=== PATIENT | male | born 1970 | race Caucasian/White ===

== ENCOUNTER 2020-01-14 06:03 | Emergency (ER) | payer OTHER, SELFPAY ==
[2020-01-14 06:04] VITALS: BP 157/100; PULSE 72; RESP 18; TEMP 36.7; O2SAT 98; BMI 31.6
--- NOTE | 2020-01-14 06:12 | CT_ITS ---
STUDY: CT ABDOMEN AND PELVIS WITHOUT CONTRAST REASON FOR EXAM: Male, 49 years old. Right flank pain. TECHNIQUE: Transaxial images were obtained from the dome of the diaphragm to the symphysis pubis without oral contrast, and without intravenous contrast. Sagittal and coronal images were reconstructed. Individualized dose optimization techniques were used for this CT. COMPARISON: 08/14/2012 CT abdomen and pelvis. FINDINGS: Partially visualized lower chest: Lung bases unremarkable. Liver: No concerning lesions. Gallbladder and biliary tree: No visible gallstones. No pericholecystic inflammation. No biliary ductal dilation. Pancreas: No pancreatic lesions or inflammation. Spleen: Normal size, no splenic lesions. Adrenal glands: No concerning masses. Kidneys and ureters: 5 mm distal right ureteral stone, a couple of millimeters proximal from the urinary bladder, with mild more proximal hydronephrosis and hydroureter and adjacent stranding. No residual right-sided stones. Several nonobstructing left renal stones, largest 15 mm in the renal pelvis. Scarring midpole right kidney. Left ureter unremarkable. Bowel: Normal appendix. No obstruction or inflammation of the bowel. Scattered sigmoid colon diverticula, no diverticulitis. Urinary bladder: No stones or wall thickening. Reproductive:Normal size prostate. Vascular: No abdominal aortic aneurysm. Retroperitoneal and peritoneal spaces: No ascites or free air. No retroperitoneal lesions. Osseous: No acute osseous abnormality. Abdominal and pelvic wall: No concerning findings. CT/Abdomen/Pelvis without Cont IMPRESSION: 5 mm distal right ureteral stone with mild obstruction. Nonobstructing left renal stones measuring up to 15 mm in size. Electronically Signed: Jose Sanchez, at 6:55 EST Tel , Service support ,
--- NOTE | 2020-01-14 06:13 | ED.DCSUM_ITS ---
History of Present Illness Chief Complaint: Flank Pain Informant: Patient Narrative: Patient presents with right-sided flank pain radiating into the groin. He feels like he has a kidney stone stuck right in his groin area. He has had 2 in the past that required intervention. He thinks he has passed to others including one last week. No fevers or chills. He has some discomfort yesterday and then it really got bad last night. No nausea or vomiting. No blood in his urine. Current severity is moderate. Worsened by nothing. Relieved by nothing. He tried Motrin. Past Medical History - Allergies and Home Meds Allergies/Adverse Reactions: Allergies No Known Allergies Allergy (Verified 01/14/20 06:07) Primary Care Physician: Abram Payan MD [STAFF PHYSICIAN] - Prior records reviewed: Yes Past Medical History: - - Kidney stones Surgical History: - - Lithotripsy Lives: With Family Smoking Status: Heavy Smoker (>10/day) Alcohol: None Drugs: None Review of Systems General: Denies: Chills, Fever, Sweats Eyes: Denies: Visual changes - bilaterally, Diplopia ENT: Denies: Rhinorrhea, Sore throat Cardiovascular: Denies: Chest pain, Palpitations Respiratory: Denies: Dyspnea, Cough, Dyspnea on exertion Gastrointestinal: Denies: Abdominal pain, Nausea, Vomiting, Diarrhea, Melena, Hematochezia Genitourinary: Denies: Dysuria, Hematuria, Frequency Musculoskeletal: Reports: Back pain - With right flank pain. Denies: Extremity Pain Skin: Denies: Rash, Wounds Neurological: Denies: Headache, Weakness, Numbness Physical Exam Vital Signs/Narrative: Vital Signs Temp Pulse Resp BP Pulse Ox 01/14/20 06:04 98.1 F 72 18 157/100 H 98 General: Well nourished, Well developed, No Acute Distress Head: Normocephalic, Atraumatic Eyes: Perrl, EOMI ENT: Moist mucous membranes, No rhinorrhea Neck: Supple, Nontender Cardiovascular: Regular rate, Regular rhythm, No murmurs Respiratory: No distress, CTA bilaterally, Chest nontender Abdomen: Soft, Nontender, Nondistended, Normal bowel sounds Back: Nontender, Normal Inspection Extremities: Nontender, No edema Skin: Normal color, No rash Neurological: Alert, Oriented x3, Cranial nerves II-XII grossly intact, Normal Strength, Normal Sensation Psychological: Normal affect, Normal Mood Diagnostic/Tx/Re-eval - Medical Decision Making Patient given IV fluids Toradol morphine and Zofran. Lab work and CT abdomen pelvis obtained. Lab work shows a white count of 11.6. Electrolyte panel unremarkable including BUN and creatinine. Urinalysis shows no evidence of infection. 5-10 red blood cells noted on microscopic. There is a small distal renal stone at the UVJ with hydronephrosis and hydroureter. my Measurement is 3.5. The radiologist measurement is 5 mm. Large stones on the opposite kidney x2 on reevaluation patient feels much better. He will be discharged to follow- up with urology. Given a prescription for Percocet, Zofran, Flomax. He should pass this ED Disposition - Plan for ED Patient: Diagnosis: Kidney stone on right side Instructions: KIDNEY STONE w/ Colic Prescriptions: Tamsulosin HCl [Flomax] 0.4 mg PO DAILY #7 cap Prescription Printed Oxycodone HCl/Acetaminophen [Percocet 5/325] 1 - 2 tab PO Q6H PRN PRN 3 Days #12 tab PRN Reason: Pain Prescription Printed Ondansetron [Zofran Odt] 4 mg PO Q8H PRN PRN #10 tab PRN Reason: Nausea Prescription Printed Referrals: Abram Payan MD [STAFF PHYSICIAN] -
[2020-01-14] MEDS: 0.9% Normal Saline 1,000 ML 250 ML IV (06:23)
[2020-01-14] MEDS: Morphine 4 MG/ML Syringe IV (06:23)
[2020-01-14] MEDS: Ketorolac 30 MG/ML Syringe IV (06:24)
[2020-01-14] MEDS: Ondansetron 4 MG/2 ML Vial IV (06:24)
[2020-01-14 06:28] LABS: Absolute Lymphocyte Count 1.12 X10^3/uL (0.83-4.51); Absolute Neutrophil Count 9.6 X10^3/uL (2.0-7.7); Basophil# 0.04 X10^3/uL; Basophil% 0.3 % (0-1); Eosinophil# 0.04 X10^3/uL; Eosinophils% 0.3 % (0-5); Hematocrit 43.5 % (40-54); Hemoglobin 15.5 g/dL (13.0-16.5); Lymphocyte # 1.12 X10^3/ul (4.0); Lymphocyte % 9.7 % (19-41); Mean Corp Hgb Conc 35.6 g/dL (32-36); Mean Corpuscular Hgb 33.2 pg (27.0-32.0); Mean Corpuscular Volume 93.1 fL (80-94); Monocyte# 0.79 X10^3/uL; Monocyte% 6.8 % (0-10); NRBC Flagged by Analyzer 0 % (0-5); Neutrophil # 9.55 X10^3/uL (2.7-7.7); Neutrophil % 82.6 % (47-70); Platelet Count 148 K/mm3 (150-450); RBC Distribution Width CV 11.3 % (11.6-14.6); RBC Distribution Width SD 38.1 fl (35.1-43.9); Red Blood Count 4.67 M/mm3 (4.6-6.2); White Blood Count 11.6 K/mm3 (4.4-11.0)
[2020-01-14 06:33] LABS: Bacteria 0 SEEN /hpf (None Seen); Mucous, Urine 0 SEEN /hpf (<or=2+); Squamous Epithelial Cells - UA 0 SEEN /hpf (0-5); White Blood Cells 0 SEEN /hpf (0-5)
[2020-01-14 06:34] LABS: Color, Urine Yellow (Yellow); Glucose, Dipstick Normal (Normal); Ketone-Dipstick Negative (Negative); Leukocyte Esterase-Dipstick Negative /ul (Negative); Nitrite-Dipstick Negative (Negative); Occult Blood-Urine 25 /ul (Negative); Protein-Dipstick Negative (Negative); Urine Bilirubin Dipstick Negative (Negative); Urine Clarity Clear (Clear); Urine Urobilinogen Normal (Normal)
[2020-01-14 06:37] LABS: Anion Gap 7 (5-15); BUN 16 mg/dL (7-18); BUN/Creat Ratio 12.3 RATIO (10-20); Calcium,Total 8.7 mg/dL (8.5-10.1); Chloride 103 mmol/L (98-107); EST Glomerular Filtration Rate 62 mL/min (>60); Est Glom Filt Rate - Afr Amer 75 mL/min (>60); Glucose 129 mg/dL (74-106); Potassium 3.9 mmol/L (3.5-5.1); Sodium Level 137 mmol/L (136-145)
[2020-01-14 06:40] LABS: Red Blood Cells-Urine 5-10 SEEN /hpf (0-5)
== END 2020-01-14 07:12 | disposition home or self-care (01) ==
LOC: ED 06:54
PROVIDERS: Emergency Provider Emergency Medicine; PCP Family Medicine
DX: N13.2 Hydronephrosis with renal and ureteral calculous obstruction (principal); F17.200 Nicotine dependence, unspecified, uncomplicated; Z87.442 Personal history of urinary calculi
CPT/HCPCS: 74176; 80048; 81001; 85025; 96361; 96374; 96375; 99283; J7030; A4216; J2405

== ENCOUNTER 2021-07-03 04:03 | Emergency (ER) | payer OTHER, SELFPAY ==
[2021-07-03 04:04] VITALS: BP 175/113; PULSE 87; RESP 16; TEMP 35.7; O2SAT 97; BMI 31.5
--- NOTE | 2021-07-03 04:09 | RAD_ITS ---
STUDY: X-RAY - RIGHT FOOT CLINICAL: Male, 50 years old. INJURY TECHNIQUE: 4 view(s) of the foot. COMPARISON: None. FINDINGS: Normal talus, calcaneus, and tarsal bones. Normal visualized subtalar, talonavicular, calcaneocuboid, tarsal and tarsometatarsal articulations. Normal metatarsi. Normal metatarsophalangeal joint of the great toe. Normal tibial and fibular sesamoid bones. Normal interphalangeal joint of the great toe. Normal phalanges of the great toe. Normal second through fifth metatarsophalangeal joints. There is a tiny corner fracture at the base of the third distal phalanx. There is soft tissue edema. RAD/Foot min 3 Views IMPRESSION: Tiny corner fracture at the base of the third distal phalanx with soft tissue edema. Electronically Signed: Jackie Baptiste MD at 5:14 EDT Tel , Service support ,
--- NOTE | 2021-07-03 05:30 | ED.VIS.LOWEX ---
HPI History of Present Illness HPI Narrative: Patient presents with injury to his right third toe that occurred this morning. Patient states he was walking and accidentally hit it on a marble table. Patient states the pain is throbbing. Patient states the pain is worse with any movement or weightbearing. Patient denies any other injuries. Patient denies any paresthesias or weakness. Chief Complaint: Lower Extremity Injury Informant: patient Occured/Mechanism Mechanism/Context: Yes blunt trauma Onset/Context/Timing Onset: Today Context: Sudden Onset Timing: Continuous Quality of Pain: Throbbing Location: Right third toe Worsened by: Weightbearing and movement Relieved by: Rest Associated Symptoms Associated Symptoms: Negative for Parasthesia, Weakness and Loss of Funtion [facility] Medical History Hypertension Home Medications lisinopril-hydrochlorothiazide 1 tab PO DAILY 01/14/20 [History Last Taken Unknown] Allergy/AdvReac Type Severity Reaction Status Date / Time No Known Allergies Allergy Verified 07/03/21 04:06 Social History Smoking Status: Current every day smoker tobacco type: cigarettes ROS ROS ED Constitutional Constitutional ED: Denies chills or fever(s) Eyes Eyes: Denies blurry vision or change in vision ENT ENT ED: Denies rhinorrhea or sore throat Cardiovascular Cardiovascular: Denies chest pain or palpitations Respiratory/Chest Respiratory/Chest: Denies cough or dyspnea Gastrointestinal Gastrointestinal: Denies nausea or vomiting Genitourinary Genitourinary ED: Denies dysuria or hematuria Musculoskeletal Musculoskeletal: Denies back pain or neck pain Integumentary Denies abscess or rash Neurologic Neurologic: Denies headache(s) or weakness Allergic/Immunologic Allergic/Immunologic ED: Denies mouth swelling or urticaria EXAM Physical Exam Const Vital Signs: 07/03/21 04:04 07/03/21 05:49 Temperature 96.2 F L Temperature Source Temporal Pulse Rate 87 Respiratory Rate 16 16 Blood Pressure 175/113 H Blood Pressure Mean 133 Pulse Ox 97 Oxygen Delivery Method Room Air Positive well nourished and well developed General Appearance ED: well developed HEENT Reports moist mucous membranes Neck full ROM and supple Extremity Extremity Narrative: There is tenderness, edema, and ecchymosis over the DIP joint of the right third toe. There is no obvious deformity noted. Range of motion was limited in all motions of the right third toe secondary to pain. Sensation was intact to light touch in all digits. Capillary refill was less than 2 seconds in all digits. There is no tenderness over the metatarsals or ankle. Neuro oriented x3, CN's II-XII intact bilaterally, moves all extremities and no sensory deficits noted Sensorium / Orientation: alert Motor Exam: strength 5/5 throughout Psych mental status grossly normal MDM MDM MDM Narrative Medical decision making narrative: X-rays of the right foot were obtained. There are 3 views. On my interpretation, there is a small fracture of the base of the distal phalanx of the right third toe. There is no dislocation. There is some mild soft tissue swelling. Radiologist also interpreted the x-rays and agrees. Patient was placed in a postop shoe. The second and third toes were oleg taped together. Patient was instructed to ice and elevate the right foot. Patient was instructed to follow-up with his primary care physician today as scheduled. Patient understood and was agreeable with the plan. All questions were answered. Radiography Diagnostic Testing: Radiology Impression Foot X-Ray 07/03/21 04:09 IMPRESSION: Tiny corner fracture at the base of the third distal phalanx with soft tissue edema. Electronically Signed: Jackie Baptiste MD at 5:14 EDT Tel , Service support , Discharge Plan Triage Chief Complaint: Lower Extremity Injury ED Provider: Kyree Whiteside Dx/Rx/DC Orders Clinical Impression: Fracture of distal phalanx of toe of right foot Instructions: ED Fracture, Toe, Closed Prescriptions: No Action lisinopril-hydrochlorothiazide 20-12.5 mg tablet 1 tab PO DAILY RF: 0 Primary Care Provider: Tanvir Youngblood Referrals: Tanvir Youngblood MD [Primary Care Provider] - [facility] appointment Disposition Disposition: Home, Self Care Discharge Date/Time: 07/03/21 05:50
[2021-07-03 05:49] VITALS: RESP 16
== END 2021-07-03 05:50 | disposition home or self-care (01) ==
LOC: ED 05:38
PROVIDERS: Emergency Provider Emergency Medicine; PCP Family Medicine
DX: S92.534A Nondisplaced fracture of distal phalanx of right lesser toe(s), initial encounter for closed fracture (principal); I10 Essential (primary) hypertension; F17.210 Nicotine dependence, cigarettes, uncomplicated; Z79.899 Other long term (current) drug therapy; W22.03XA Walked into furniture, initial encounter; Y93.01 Activity, walking, marching and hiking; Y92.009 Unspecified place in unspecified non-institutional (private) residence as the place of occurrence of the external cause; Y99.8 Other external cause status
CPT/HCPCS: 73630; 99283

== ENCOUNTER 2023-01-02 02:07 | Emergency (ER) | payer OTHER, SELFPAY ==
[2023-01-02 02:09] VITALS: BP 176/111; PULSE 86; RESP 16; TEMP 36.6; O2SAT 98; BMI 29.0
--- NOTE | 2023-01-02 02:24 | EDS_ITS ---
HPI History of Present Illness Chief Complaint: Edema Detail of Chief Complaint: Left nasal pain after being scratched inside his nose. Informant: patient Onset/Context/Timing Onset: Days Context: Gradual Onset Timing: Continuous Current Severity: Mild Maximum Severity: Mild Narrative Narrative: 52-year-old male treated for hypertension on lisinopril. He is a small child he was holding scratch inside his left naris. That was several days to a week ago. He had discomfort and mild swelling. He said initially it bled. Said there is minimal swelling on the outside of his nose is tender. He is also had some very minimal swelling to his left upper lip. No trouble swallowing. No swelling of his tongue. No trouble breathing. Prior similar symptoms: No Recent Illness/Hospitalization: No PFSH PFSH Medical History Hypertension Home Medications lisinopril 20 mg-hydrochlorothiazide 12.5 mg tablet 1 tab PO DAILY 01/14/20 [History Last Taken Unknown] Allergy/AdvReac Type Severity Reaction Status Date / Time No Known Allergies Allergy Verified 01/02/23 02:08 Surgical History no surgical history Social History Smoking Status: Current every day smoker tobacco type: cigarettes ROS ROS ED ROS Narrative No recent illness. Review of Systems ROS Unobtainable: Denies due to encephalopathy Constitutional Constitutional ED: Denies chills or fever(s) Eyes Eyes: Denies blurry vision ENT ENT ED: Reports rhinorrhea; Denies ear pain or sore throat Cardiovascular Cardiovascular: Denies chest pain or palpitations Respiratory/Chest Respiratory/Chest: Denies cough or dyspnea Gastrointestinal Gastrointestinal: Denies abdominal pain Genitourinary Genitourinary ED: Denies dysuria or hematuria Musculoskeletal Musculoskeletal: Denies arthralgias Integumentary Denies abscess Neurologic Neurologic: Denies headache(s) Psychiatric Psychiatric: Denies anxiety Endocrine Endocrinology: Denies cold intolerance Hematologic/Lymphatic Hematologic/Lymphatic: Reports none Allergic/Immunologic Allergic/Immunologic ED: Denies mouth swelling, tongue swelling or urticaria EXAM Physical Exam Narrative Exam Narrative: Well-appearing 52-year-old male. Vital signs stable afebrile. Initial blood pressure 176/111. H EENT exam he has a nasal drainage of both sides of his nose. The left lateral side of his nose is tender to palpation. There is no significant swelling. No bleeding. I do not see any signs of a nasal abscess. Pupils are reactive light his motions are intact. His left upper lip is just minimally swollen. It is asymmetrical to the right. No trouble swallowing and no tongue swelling. No drooling. Neck nontender no lymphadenopathy. Lungs clear to auscultation bilaterally. Heart regular rhythm no murmur. Abdomen soft nontender. Moving all 4 extremities. Const Vital Signs: 01/02/23 02:09 01/02/23 02:11 Temperature 97.9 F Temperature Source Oral Pulse Rate 86 Respiratory Rate 16 Respiratory Effort Normal Respiratory Pattern Normal Blood Pressure 176/111 H Blood Pressure Mean 132 Pulse Ox 98 Oxygen Delivery Method Room Air Positive well developed; Negative for obese, cachectic, contractures or unkempt General Appearance ED: well developed and NAD; Negative for unkempt, cachectic, contractures, cyanotic, diaphoretic or pallor Nutritional Appearance: Negative for cachectic or obese HEENT Reports moist mucous membranes; Denies dry mucous membranes Negative for trauma or tenderness Mouth ED: No dry mucous membranes Mouth: No dry mucous membranes Eyes PERRL and EOMs intact bilaterally General Eye ED: Negative for pale conjunctiva or scleral icterus Neck no lymphadenopathy, supple and no JVD General: Negative for tenderness Chest Wall inspection of chest normal and palpation of chest normal Resp normal respiratory effort and clear to auscultation bilaterally Effort and Inspection: Negative for retractions Auscultation: Negative for rales, rhonchi or wheezes Cardio regular rate, regular rhythm, S1 normal heart sound, S2 normal heart sound and no murmurs GI normal to inspection, nondistended, normoactive bowel sounds, non-tender, non- distended and no masses Inspection: Negative for abdominal distention Auscultation: normoactive bowel sounds Palpation: soft; Negative for tender or guarding Back/Spine Negative for no CVA tenderness Extremity normal to inspection General Extremety ED: Negative for edema or tenderness General Extremity: Negative for edema Neuro oriented x3 Sensorium / Orientation: alert; Negative for orientation impaired, lethargic or stuporous Motor Exam: strength 5/5 throughout Psych mental status grossly normal Appearance: Negative for unkempt Attitude: No agitated Mood & Affect: Negative for depressed, anxious or tearful Skin no rashes or lesions noted and no wounds General Skin Exam: elasticity normal; Negative for jaundice or pallor Lesions: No lesion noted Rashes: No rashes noted Trauma: Negative for abrasion Wounds: Negative for wounds noted MDM MDM MDM Narrative Medical decision making narrative: 50-year-old male that was poked in the nose by a little child and cut the inside of his nose with bleeding. This occurred 5 to 7 days ago. Now he has left nasal pain and some swelling. He is concerned he may be infected. He also is on an VALENTINA inhibitor and has minimal swelling of his left upper lip. He has had tongue swelling in the past that resolved but he never told his physician about. 1 admitted treating for a possible nasal mucosal infection from a internal laceration. He will be started on Keflex 500 3 times daily for 10 days. I explained to him there is some color angioneurotic edema from VALENTINA inhibitor's. He may have that. With the lower lip swelling. It is not large at all at this time. He said no trouble swallowing or breathing. He should hold his VALENTINA inhibitor. Follow-up with his primary care physician to be changed to a different blood pressure medication. Return if worse. He knows return if the lip gets more swollen or his tongue started to swell. Is any trouble breathing or swallowing. Discharge Plan Triage Chief Complaint: Edema ED Provider: Aroldo Wellington Dx/Rx/DC Orders Clinical Impression: Abrasion of nose with infection, Angioneurotic edema, History of hypertension Instructions: ED Angioedema Prescriptions: No Action lisinopril-hydrochlorothiazide 20-12.5 mg tablet 1 tab PO DAILY Label Comments: take 1 tablet by mouth every morning Primary Care Provider: Tanvir Youngblood Referrals: Tanvir Youngblood MD [Primary Care Provider] - As soon as possible Activity Restrictions/Additional Instructions: Keflex 1 pill 3 times a day for 10 days to improve the infection on your nose. You have mild swelling on your left upper lip. This may be a reaction to your blood pressure medication the lisinopril. Hold medication. Follow-up with Dr. Youngblood to discuss with him about having your blood pressure medication changed. If you start having more swelling of your lip or tongue you need to return. Ice to your lip. Disposition Disposition: Home, Self Care
[2023-01-02] MEDS: Cephalexin 250 MG Capsule 500 MG PO (02:27)
[2023-01-02 02:30] VITALS: BP 144/107
== END 2023-01-02 02:44 | disposition home or self-care (01) ==
PROVIDERS: Emergency Provider Emergency Medicine; PCP Family Medicine; Visit Provider Emergency Medicine
DX: S00.31XA Abrasion of nose, initial encounter (principal); R60.9 Edema, unspecified; F17.210 Nicotine dependence, cigarettes, uncomplicated; I10 Essential (primary) hypertension; Z79.899 Other long term (current) drug therapy; W50.4XXA Accidental scratch by another person, initial encounter
CPT/HCPCS: 99283

== ENCOUNTER 2024-12-09 23:03 | Emergency (ER) | payer OTHER, SELFPAY ==
[2024-12-09 23:04] VITALS: BP 160/97; PULSE 86; RESP 16; TEMP 36.4; O2SAT 98; BMI 30.7
--- NOTE | 2024-12-09 23:26 | EDS_ITS ---
HPI History of Present Illness Chief Complaint: Dental Informant: patient Narrative Narrative: Patient is a 54-year-old male with past medical history of hypertension and underlying dental disease. He states he is scheduled to have his teeth removed in roughly 1 month. He states he has noticed some mild pain in the right lower jaw for the last 2 to 3 days. However today he developed increasing pain and swelling. He denies any difficulty breathing or swallowing. He states he contacted his dentist and they state they cannot see him until he completes a round of antibiotics and therefore he comes to the hospital for evaluation [facility] Medical History Hypertension Home Medications ?Medication ?Instructions ?Recorded ?Last Taken ?Type lisinopril 20 1 tab PO DAILY 01/14/20 Unknown History mg-hydrochlorothiazide 12.5 mg tablet cephalexin 500 mg capsule 500 mg PO TID 10 days #30 caps 01/02/23 Unknown Rx clindamycin HCl 300 mg capsule 300 mg PO 4X/DAY 10 days #40 caps 12/09/24 Unknown Rx ibuprofen 600 mg tablet 600 mg PO 4X/DAY PRN pain #40 tabs 12/09/24 Unknown Rx oxycodone-acetaminophen 5 mg-325 1 tab PO Q6H PRN pain 3 days #12 12/09/24 Unknown Rx mg tablet (Percocet) tabs Allergy/AdvReac Type Severity Reaction Status Date / Time No Known Allergies Allergy Verified 12/09/24 23:05 Surgical History no surgical history Social History Smoking Status: Current every day smoker tobacco type: cigarettes ROS ROS ED Constitutional Constitutional ED: Denies chills or fever(s) Eyes Eyes: Denies change in vision ENT ENT ED: Reports other Details: Positive dental pain/swelling Cardiovascular Cardiovascular: Denies chest pain Respiratory/Chest Respiratory/Chest: Denies cough or dyspnea Gastrointestinal Gastrointestinal: Denies abdominal pain, diarrhea, nausea or vomiting Genitourinary Genitourinary ED: Denies dysuria Musculoskeletal Musculoskeletal: Denies neck pain Integumentary Denies rash Neurologic Neurologic: Denies headache(s) Hematologic/Lymphatic Hematologic/Lymphatic: Denies easy bleeding or easy bruising Allergic/Immunologic Allergic/Immunologic ED: Reports mouth swelling; Denies tongue swelling EXAM Physical Exam Const Vital Signs: 12/09/24 23:04 Temperature 97.5 F L Temperature Source Oral Pulse Rate 86 Respiratory Rate 16 Blood Pressure 160/97 H Blood Pressure Mean 118 Pulse Ox 98 Oxygen Delivery Method Room Air Positive well nourished and well developed General Appearance ED: well developed HEENT HEENT Narrative: Patient has multiple dental caries present with soft tissue swelling in the right anterior lower jaw tooth #28 and 29 consistent with dental abscess. No active drainage noted. No airway edema or compromise. No signs of ANUG Eyes PERRL and EOMs intact bilaterally Neck supple Neck Narrative: No brawny edema in the submental space to suggest Ge's angina Resp normal respiratory effort and clear to auscultation bilaterally Cardio regular rate and regular rhythm Extremity normal to inspection Neuro oriented x3, CN's II-XII intact bilaterally and no sensory deficits noted Sensorium / Orientation: alert Motor Exam: strength 5/5 throughout Psych mental status grossly normal Skin Skin Narrative: Soft tissue swelling to the anterior aspect of the right sided lower face/jaw without overlying redness warmth or streaking MDM MDM MDM Narrative Medical decision making narrative: Patient arrived to the ER hypertensive but has a past medical history of this. He has known dental issues but physical exam has developed a dental abscess. There are no signs of ANUG or Ge angina. We discussed performing an incision and drainage but the patient does not want that performed at this time. He states his dentist told him he needs antibiotics and therefore simply wants treated and will follow-up with his dentist to discuss further treatment such as drainage if necessary. Therefore at this time as he does not have airway compromise or signs of respiratory distress or systemic infection he be started on antibiotics and is otherwise safe for discharge History & Record Review Discussion w/independent historian: Patient Discharge Plan Triage Chief Complaint: Dental ED Provider: Davon Trevizo Dx/Rx/DC Orders Clinical Impression: Dental abscess, Dental caries, Hypertension Instructions: Dental Abscess, ED Dental Cavity Prescriptions: New clindamycin HCl 300 mg capsule 300 mg PO 4X/DAY 10 Days Qty: 40 0RF oxycodone-acetaminophen [Percocet] 5-325 mg tablet 1 tab PO Q6H PRN (Reason: pain) 3 Days Qty: 12 0RF ibuprofen 600 mg tablet 600 mg PO 4X/DAY PRN (Reason: pain) Qty: 40 0RF No Action lisinopril-hydrochlorothiazide 20-12.5 mg tablet 1 tab PO DAILY Patient Comments: take 1 tablet by mouth every morning cephalexin 500 mg capsule 500 mg PO TID 10 Days Qty: 30 0RF Primary Care Provider: Tanvir Youngblood Referrals: Tanvir Youngblood MD [Primary Care Provider] - Activity Restrictions/Additional Instructions: Please take your antibiotic as directed to resolve your dental infection and follow-up with your dentist for further evaluation. If the antibiotic does not resolve the infection the area may need incised and drained. You may take 1 Percocet with 1 ibuprofen up to 4 times a day for improved pain control. If you have any further concerns return to the ER for repeat evaluation Print Language: Luxembourgish Disposition Disposition: Home, Self Care Discharge Date/Time: 12/09/24 23:42
[2024-12-09] MEDS: oxyCODONE 5 MG Tablet 10 MG PO (23:40)
[2024-12-09] MEDS: Clindamycin HCl 150 MG Capsule 300 MG PO (23:41)
== END 2024-12-09 23:42 | disposition home or self-care (01) ==
LOC: ED 23:35
PROVIDERS: Emergency Provider Emergency Medicine; PCP Family Medicine; Visit Provider Emergency Medicine
DX: K04.7 Periapical abscess without sinus (principal); K02.9 Dental caries, unspecified; I10 Essential (primary) hypertension; F17.210 Nicotine dependence, cigarettes, uncomplicated
CPT/HCPCS: 99283

== ENCOUNTER 2025-05-18 05:52 | Emergency (ER) | payer OTHER, SELFPAY ==
[2025-05-18 05:52] VITALS: BP 122/83; PULSE 81; RESP 24; TEMP 36.7; O2SAT 100
--- NOTE | 2025-05-18 06:49 | EX.ED.DYSGE1 ---
HPI History of Present Illness Chief Complaint: Mental Health Informant: patient and spouse/S.O. Narrative Narrative: Patient is a 54-year-old male with past medical history of hypertension. On Saturday of this week he reports that his 13-year-old son . He states he found him unresponsive and not breathing and he performed CPR while awaiting EMS. He states that he cannot get the image out of his head. He states that he has difficulty sleeping and he is not eating or drinking secondary to his grief. He states that he does not feel homicidal or suicidal and does not believe he needs admission in a psychiatric facility. However as he cannot control his grief and is affecting his daily activity he presents to discuss medication. [facility] Medical History Hypertension Home Medications ?Medication ?Instructions ?Recorded ?Last Taken ?Type ibuprofen 600 mg tablet 600 mg PO 4X/DAY PRN pain #40 tabs 12/09/24 Unknown Rx hydrochlorothiazide 25 mg tablet 25 mg PO DAILY 05/18/25 Unknown History lisinopril 40 mg tablet 40 mg PO BID 05/18/25 Unknown History lorazepam 1 mg tablet (Ativan) 1 mg PO TID PRN anxiety 7 days #21 05/18/25 Unknown Rx tabs Allergy/AdvReac Type Severity Reaction Status Date / Time No Known Allergies Allergy Verified 12/09/24 23:05 Family History no significant family his Surgical History no surgical history Social History Smoking Status: Current every day smoker tobacco type: cigarettes ROS ROS ED Constitutional Constitutional ED: Denies chills or fever(s) Eyes Eyes: Denies change in vision ENT ENT ED: Denies sore throat Cardiovascular Cardiovascular: Denies chest pain Respiratory/Chest Respiratory/Chest: Denies cough or dyspnea Gastrointestinal Gastrointestinal: Reports nausea; Denies abdominal pain, diarrhea or vomiting Musculoskeletal Musculoskeletal: Denies myalgias Integumentary Denies rash Neurologic Neurologic: Denies headache(s) Psychiatric Psychiatric: Reports anxiety and depression; Denies suicidal ideation or suicidal thoughts Hematologic/Lymphatic Hematologic/Lymphatic: Denies easy bleeding or easy bruising EXAM Physical Exam Const Vital Signs: 05/18/25 05:52 Temperature 98.1 F Temperature Source Oral Pulse Rate 81 Respiratory Rate 24 H Blood Pressure 122/83 H Blood Pressure Mean 96 Pulse Ox 100 Oxygen Delivery Method Room Air Positive well nourished and well developed General Appearance ED: well developed; Negative for pallor HEENT HEENT Narrative: Normocephalic atraumatic Eyes PERRL and EOMs intact bilaterally General Eye ED: Negative for scleral icterus Neck supple Resp normal respiratory effort and clear to auscultation bilaterally Cardio regular rate and regular rhythm Extremity normal to inspection Neuro oriented x3, CN's II-XII intact bilaterally and no sensory deficits noted Sensorium / Orientation: alert Motor Exam: strength 5/5 throughout Psych Psych Narrative: Patient has careful anxious affect without homicidal or suicidal ideation Mood & Affect: anxious and tearful Skin no rashes or lesions noted General Skin Exam: Negative for jaundice or pallor MDM MDM MDM Narrative Medical decision making narrative: Patient arrived to the ER with stable vitals. He reported symptoms consistent with anxiety and depression from a grief reaction. He is not homicidal or suicidal and therefore there is no need for psychiatric evaluation. At this time I do feel that medication is necessary based on the significant grief reaction. As symptoms do not appear related to any type of underlying medical conditions such as hypertension or infection and he is not needing medical clearance for psychiatric placement there is no need for laboratory studies. The patient will be placed on Ativan to help with his grief response for the next week while he deals with the initial aspect of his son's . He understands that he will most likely require counseling and family is present with him today and they agreed to continue to monitor the patient and if he develops thoughts of self-harm to return for reevaluation and potential medical placement History & Record Review Discussion w/independent historian: Patient and Significant other Discharge Plan Triage Chief Complaint: Mental Health ED Provider: Davon Trevizo Dx/Rx/DC Orders Clinical Impression: Grief reaction, Hypertension Instructions: Grief and Loss Coping, ED Grief Reaction Prescriptions: New lorazepam [Ativan] 1 mg tablet 1 mg PO TID PRN (Reason: anxiety) 7 Days Qty: 21 0RF No Action hydrochlorothiazide 25 mg tablet 25 mg PO DAILY lisinopril 40 mg tablet 40 mg PO BID ibuprofen 600 mg tablet 600 mg PO 4X/DAY PRN (Reason: pain) Qty: 40 0RF Primary Care Provider: Tanvir Youngblood Referrals: Tanvir Youngblood MD [Primary Care Provider] - Activity Restrictions/Additional Instructions: You may take the Ativan 3 times a day and you can also take 2 [id number] Benadryl at the same time if needed for improved sedation/sleep. Please consider seeing a counselor to work through your grief. If you feel your symptoms are worsening or you have any further concerns please return to the ER for repeat evaluation. Print Language: Azeri Disposition Disposition: Home, Self Care Discharge Date/Time: 05/18/25 07:10
[2025-05-18] MEDS: DiphenhydrAMINE 25 MG Capsule 50 MG PO (07:02)
[2025-05-18] MEDS: LORazepam 1 MG Tablet 2 MG PO (07:02)
[2025-05-18 07:03] VITALS: BP 111/84; PULSE 88; RESP 18; TEMP 36.7; O2SAT 96
--- OUTSIDE RECORDS SUMMARY | 2025-05-18 07:10 | XMS RPT_ITS | CCD ---
Author Organization [facility] Care Team Providers Care Business Account Leader Name Role Phone DELMA CUBA Attending Unavailable SHAHEED KIRAN Primary Care Unavailable Shaheed Kiran MD Primary Care Provider [phone] Shaheed Kiran MD Primary Care Provider [phone] Shaheed Kiran MD Primary Care Provider Donovan [employer] HE[employer] TECHNICIANNatty CHAVEZ Unavailable Heike De León PA-C Unavailable [phone] NATTY MAN Attending Unavailable SHAHEED KIRAN Primary Care Unavailable NATTY MAN Attending Unavailable SHAHEED KIRAN Primary Care Unavailable SHAHEED KIRAN Primary Care Unavailable SHAHEED KIRAN Attending Unavailable Davon Trevizo Attending Unavailable Shaheed Kiran Primary Care Unavailable Medications Current Medications Medication Drug Class(es) Dates Sig (Normalized) Sig (Original) amoxicillin 875 mg / clavulanate 125 mg oral tablet (1 source) Penicillin-class Antibacterial Start: 10-26-20 End: 10-31-20 take 1 tablet by mouth twice daily amoxicillin-clavulanic acid (AUGMENTIN) 875-125 mg per tablet Indications: Acute non-recurrent sinusitis, unspecified location Take 1 tablet by mouth twice daily for 5 days. 10 tablet 0 10/26/2022 10/31/2022 Active Comment on above: Take 1 tablet by mendez twice daily for 5 days. cephalexin 500 mg oral capsule (1 source) Cephalosporin Antibacterial Start: 01-02-20 23 take 500 mg by mouth three times daily Cephalexin Active 500 MG PO THREE TIMES A DAY 30 January 02, 2023 12:00am hydroCHLOROthiazide 25 mg oral tablet (7 sources) Thiazide Diuretic Start: 05-20-20 24 End: 11-26-20 24 take 1 tablet by mouth once daily hydroCHLOROthiazide 25 mg tablet Indications: Essential hypertension Take 1 tablet by mouth once daily. 30 tablet 5 11/26/2024 Active lisinopril 40 mg oral tablet (7 sources) Angiotensin Converting Enzyme Inhibitor Start: 05-20-20 24 End: 11-26-20 24 take 1 tablet by mouth twice daily lisinopril (ZESTRIL) 40 mg tablet Indications: Essential hypertension Take 1 tablet by mouth two times a day. 60 tablet 5 11/26/2024 Active Completed/Discontinued Medications Medication Drug Class(es) Dates Sig (Normalized) Sig (Original) acetaminophen 325 mg / oxyCODONE hydrochloride 5 mg oral tablet (1 source) Opioid Agonist Start: 0 End: 0 take 1 tablet by mouth every six hours as needed Oxycodone-Acetamin ophen Discontinued 1 - 2 TABLET PO EVERY 6 HOURS NEEDED 12 January 14, 2020 January 17, 2020 12:08am fluticasone propionate 0.05 mg/actuat metered dose nasal spray (3 sources) Corticosteroid Start: 1 End: 2 take 2 spray(s) by mouth once daily fluticasone (FLONASE) 50 mcg/actuation nasal spray Indications: Sinobronchitis Use 2 Sprays in each nostril once daily. Rinse mouth after use. 1 Bottle 11 03/09/2021 07/29/2022 Discontinued Comment on above: Use 2 Sprays in each nostril once daily. Rinse mouth after use. hydroCHLOROthiazide 12.5 mg / lisinopril 20 mg oral tablet (12 sources) Thiazide Diuretic, Angiotensin Converting Enzyme Inhibitor Start: 2 End: 4 take 2 tablets by mouth once daily in the morning lisinopril-hydroCH LOROthiazide (ZESTORETIC) 20-12.5 mg per tablet Indications: Essential hypertension Take 2 tablets by mouth every morning. 60 tablet 5 10/12/2023 05/20/2024 Discontinued (Changing Therapy/Dosage Form) Start: 05-15-2021 End: 10-09-2021 take 1 tablet by mouth once daily in the morning lisinopril-hydroCHLOROthiazide (PRINZIDE,ZESTORETIC) 20-12.5 mg per tablet Take 1 tablet by mouth every morning. 30 tablet 05/15/2021 10/09/2021 Discontinued Start: 01-14-2020 take 1 tablet by mendez th once daily Lisinopril-Hydrochlorothiazide Active 1 TABLET PO DAILY January 14, 2020 12:00am Comment on above: Take 2 tablets by mo uth every morning. Take 1 tablet by mendez th every morning. naproxen 500 mg oral tablet (2 sources) Nonsteroidal Anti-inflammatory Drug Start: 05-31-20 End: 07-29-20 22 take 1 tablet by mouth every twelve hours as needed naproxen (NAPROSYN) 500 mg tablet Take 1 tablet by mouth twice daily as needed (pain/inflammation, take with food.). 20 tablet 05/31/2021 07/29/2022 Discontinued Comment on above: Take 1 tablet by mendez th twice daily as needed (pain/inflammation, take with food.). predniSONE 20 mg oral tablet (2 sources) Start: 03-09-20 End: 10-09-20 take 2 tablets by mouth once daily predniSONE (DELTASONE) 20 mg tablet Indications: Sinobronchitis Take 2 tablets by mouth once daily. 10 tablet 03/09/2021 10/09/2021 Discontinued varenicline 1 mg oral tablet (6 sources) Partial Cholinergic Nicotinic Agonist Start: 04-27-20 End: 05-20-20 take 1 tablet by mouth twice daily varenicline (CHANTIX) 1 mg tablet Indications: Encounter for smoking cessation counseling Take 1 tablet by mouth twice daily. 60 tablet 1 04/27/2023 05/20/2024 Discontinued Start: 03-28-2023 End: 05-20-2024 take 0.5 tablet by mouth once daily, then take 0.5 tablet by mouth twice daily, then take 1 tablet by mouth twice daily varenicline (CHANTIX) 1 mg tablet Indications: Encounter for smoking cessation counseling Take 0.5 tablets by mouth once daily for 3 days, THEN 0.5 tablets twice daily for 4 days, THEN 1 tablet twice daily for 23 days. 52 tablet 0 03/28/2023 05/20/2024 Discontinued Comment on above: Take 0.5 tablets by mouth once daily for 3 days, THEN 0.5 tablets twice daily for 4 days, THEN 1 tablet twice daily for 23 days. Take 1 tablet by mendez th twice daily. Problems Active Problems Problem Classification Problem Date Documented Da te Episodic/Chronic Disorders of teeth and jaw (1 source) Other specified disorders of teeth and supporting structures; Translations: [Other specified disorders of teeth and supporting structures] Onset: 12-30-2024 Episodic Essential hypertension (20 sources) Essential hypertension; Translations: [Essential (primary) hypertension] Onset: 08-13-2014 Chronic Fracture of lower limb (1 source) Fracture of phalanx of foot; Translations: [Unspecified fracture of right toe(s), initial encounter for closed fracture] 07-03-2021 Episodic Other circulatory disease (1 source) H/O: hypertension; Translations: [Personal history of other diseases of the circulatory system] 01-02-2023 Episodic Other injuries and conditions due to external causes (1 source) Angioedema; Translations: [Angioneurotic edema, initial encounter] 01-02-2023 Episodic Other non-traumatic joint disorders (1 source) Pain in left knee; Translations: [Pain in joint, lower leg] 05-31-2021 Episodic Other upper respiratory infections (1 source) Acute sinusitis; Translations: [Acute sinusitis, unspecified] Episodic Substance-related disorders (16 sources) Smoker; Translations: [Nicotine dependence, unspecified, uncomplicated] Onset: 01-20-2016 Chronic Superficial injury; contusion (1 source) Abrasion and/or friction burn of nose with infection; Translations: [Abrasion of nose, initial encounter] 01-02-2023 Episodic Past or Other Problems Problem Classification Problem Date Documented Da te Episodic/Chronic Calculus of urinary tract (14 sources) Kidney stone; Translations: [Calculus of kidney] Onset: 12-20-2009 06-28-2014 Episodic Immunizations and screening for infectious disease (1 source) Encounter for immunization; Translations: [Encounter for immunization] Onset: 05-20-2024 Episodic Other screening for suspected conditions (not mental disorders or infectious disease) (20 sources) Patient encounter status; Translations: [Encounter for screening for diabetes mellitus] Onset: 07-28-2022 Episodic Results Test Name Value Interpretation Reference Range Facility Emergency Department Summary on 12-09-2024 Emergency Department Summary [facility] Medical Records Department [facility] [place] [address] Emergency Department Summary 12/09/24 MR#: [id number] Acct: [id number] Name: MAGDY GARCIA Rep #: [id number] : 1970 54 From: Davon Trevizo DO PCP: Dr. Shaheed Kiran MD Status:DEP ER Location: ED HPI History of Present Illness Chief Complaint: Dental Informant: patient Narrative Narrative: Patient is a 54-year-old male with past medical history of hypertension and underlying dental disease. He states he is scheduled to have his teeth removed in roughly 1 month. He states he has noticed some mild pain in the right lower jaw for the last 2 to 3 days. However today he developed increasing pain and swelling. He denies any difficulty breathing or swallowing. He states he contacted his dentist and they state they cannot see him until he completes a round of antibiotics and therefore he comes to the hospital for evaluation [facility] Medical History Hypertension Home Medications ???Medication ???Instructions ???Recorded ???Last Taken ???Type lisinopril 20 1 tab PO DAILY 01/14/20 Unknown History mg-hydrochlorothiazide 12.5 mg tablet cephalexin 500 mg capsule 500 mg PO TID 10 days #30 caps 01/02/23 Unknown Rx clindamycin HCl 300 mg capsule 300 mg PO 4X/DAY 10 days #40 caps 12/09/24 Unknown Rx ibuprofen 600 mg tablet 600 mg PO 4X/DAY PRN pain #40 tabs 12/09/24 Unknown Rx oxycodone-acetaminophen 5 mg-325 1 tab PO Q6H PRN pain 3 days #12 12/09/24 Unknown Rx mg tablet (Percocet) tabs Allergy/AdvReac Type Severity Reaction Status Date / Time No Known Allergies Allergy Verified 12/09/24 23:05 Surgical History no surgical history Social History Smoking Status: Current every day smoker tobacco type: cigarettes ROS ROS ED Constitutional Constitutional ED: Denies chills or fever(s) Eyes Eyes: Denies change in vision ENT ENT ED: Reports other Details: Positive dental pain/swelling Cardiovascular Cardiovascular: Denies chest pain Respiratory/Chest Respiratory/Chest: Denies cough or dyspnea Gastrointestinal Gastrointestinal: Denies abdominal pain, diarrhea, nausea or vomiting Genitourinary Genitourinary ED: Denies dysuria Musculoskeletal Musculoskeletal: Denies neck pain Integumentary Denies rash Neurologic Neurologic: Denies headache(s) Hematologic/Lymphatic Hematologic/Lymphatic: Denies easy bleeding or easy bruising Allergic/Immunologic Allergic/Immunologic ED: Reports mouth swelling; Denies tongue swelling EXAM Physical Exam Const Vital Signs: 12/09/24 23:04 Temperature 97.5 F L Temperature Source Oral Pulse Rate 86 Respiratory Rate 16 Blood Pressure 160/97 H Blood Pressure Mean 118 Pulse Ox 98 Oxygen Delivery Method Room Air Positive well nourished and well developed General Appearance ED: well developed HEENT HEENT Narrative: Patient has multiple dental caries present with soft tissue swelling in the right anterior lower jaw tooth #28 and 29 consistent with dental abscess. No active drainage noted. No airway edema or compromise. No signs of ANUG Eyes PERRL and EOMs intact bilaterally Neck supple Neck Narrative: No brawny edema in the submental space to suggest Ge's angina Resp normal respiratory effort and clear to auscultation bilaterally Cardio regular rate and regular rhythm Extremity normal to inspection Neuro oriented x3, CN's II-XII intact bilaterally and no sensory deficits noted Sensorium / Orientation: alert Motor Exam: strength 5/5 throughout Psych mental status grossly normal Skin Skin Narrative: Soft tissue swelling to the anterior aspect of the right sided lower face/jaw without overlying redness warmth or streaking MDM MDM MDM Narrative Medical decision making narrative: Patient arrived to the ER hypertensive but has a past medical history of this. He has known dental issues but physical exam has developed a dental abscess. There are no signs of ANUG or Ge angina. We discussed performing an incision and drainage but the patient does not want that performed at this time. He states his dentist told him he needs antibiotics and therefore simply wants treated and will follow-up with his dentist to discuss further treatment such as drainage if necessary. Therefore at this time as he does not have airway compromise or signs of respiratory distress or systemic infection he be started on antibiotics and is otherwise safe for discharge History Record Review Discussion w/independent historian: Patient Discharge Plan Triage Chief Complaint: Dental ED Provider: Davon Trevizo Dx/Rx/DC Orders Clinical Impression: Dental ab (more content not included)... [facility] Office Visit ([facility] ) -------- MAGDY GARCIA ([id number]) 1970 M Date Time Provider Department 06/30/24 3:20 PM [facility] During your visit today, we recorded the following information about you: Pulse Respiration Blood pressure Weight 93/minute 16/minute 122/88 87.5 kg Natty Man APRN.[facility] 06/30/2024 3:13 PM Signed Chief Complaint No chief complaint on file. HPI Magdy Garcia is a 53 year old male who presents here today for Above Complaints.. Patient presents for BP follow up. Patient was seen 1 week ago but had been out of HCTZ for 4 days. Past medical history, appointments, medications, allergies reviewed. Previous Medical History PAST MEDICAL HISTORY Diagnosis Date Calculus of kidney staghorn Essential hypertension 08/13/2014 Hydronephrosis 12/20/2009 Left inguinal hernia 01/20/2016 S/p repair 2015 Smoker 01/20/2016 Tobacco use disorder 01/20/2016 Quit 12/2015 Previous Surgical History PAST SURGICAL HISTORY Procedure Laterality Date PAST SURGICAL HISTORY OF 2010 ESWL x3 PAST SURGICAL HISTORY OF 01/2010 percutaneous ultrasonic pyelolithotomy for left staghorn calculi PAST SURGICAL HISTORY OF 01/2010 stent removal under anesthesia REPAIR INGUINAL HERNIA Left 02/28/2016 Open procedure Family History FAMILY HISTORY Problem Relation Age of Onset Hypertension Father Kidney stones Father Kidney stones Sister Crohn's Disease Brother Hypertension Paternal Grandfather Thyroid No Family History Alzheimer's Disease No Family History Colon Cancer No Family History Prostate Cancer No Family History Breast Cancer No Family History Ovarian cancer No Family History Hyperlipidemia No Family History Diabetes No Family History Kidney Disease No Family History Seizures No Family History Stroke No Family History Patient Allergies ALLERGIES No Known Allergies Current Medications Current Outpatient Medications on File Prior to Visit Medication Sig lisinopril (ZESTRIL) 40 mg tablet Take 1 tablet by mouth two times a day. hydroCHLOROthiazide 25 mg tablet Take 1 tablet by mouth once daily. No current facility-administered medications on file prior to visit. Social History Social History Tobacco Use Smoking status: Some Days Types: Cigarettes Last attempt to quit: 12/27/2015 Years since quittin.5 Smokeless tobacco: Never Tobacco comments: uses electronic cigarette Substance Use Topics Alcohol use: Yes Comment: SOCIALLY-Holidays Drug use: No Review of Symptoms REVIEW OF SYSTEMS SEE HPI EXAM: BP 122/88 Pulse 93 Resp 16 Wt 87.5 kg (193 lb) BMI 30.23 kg/m? General Appearance: Well appearing, alert, in no acute distress, well-hydrated, well nourished.. Lungs: Lungs clear to auscultation. No wheezing, rhonchi, rales.. Heart: RRR without murmur, gallop, or rubs. No ectopy. Health Maintenance List Pneumococcal Vaccine(1 of 2 - PCV) Never done Depression Screening Never done Anxiety Screening Never done BP Controlled (<130/80) Never done Colorectal Cancer Screening Never done Shingrix Vaccine(1 of 2) due on 05/20/2025 Influenza Vaccine(1) due on 08/02/2024 Diabetes Screening due on 10/10/2024 Annual PCP Team Chronic Disease Visit due on 06/18/2025 Lipid Screening due on 10/10/2026 DTaP,Tdap,Td Vaccine(3 - Td or Tdap) due on 05/20/2034 Hepatitis C Screening Completed HIV Screening Completed Hepatitis B Vaccine Discontinued Covid-19 Vaccine Discontinued Data reviewed Last 5 Encounter BP Readings: Date: BP: 06/30/2024 122/88 06/18/2024 142/100 05/20/2024 174/118 03/28/2023 158/100 10/26/2022 134/80 ASSESSMENT/PLAN: 1. Essential hypertension - ICD9: 401.9, ICD10: I10 - Controlled - Continue current medications - Recommend home blood pressure monitoring, to bring results to next visit - Encouraged sodium restriction, DASH or Mediterranean diet - Recommend regular aerobic exercise - Discussed need for and benefit of weight loss. BMI 30.23 kg/(m2) Natty Man APRN.CONVEYOR ATTENDANT Allergies As of Date: 06/30/2024 (No Known Allergies) Date Reviewed: 06/30/2024 Reviewed by: Camille Norris MA - Fully Assessed Reason for Visit: Follow Up [171] Cmt: BP Primary Visit Diagnosis:Essential hypertension [I10] Prescriptions as of 06/30/2024 - lisinopril (ZESTRIL) 40 mg tablet Take 1 tablet by mouth two times a day. - hydroCHLOROthiazide 25 mg tablet Take 1 tablet by mouth once daily. Problem List As Of Date 06/30/2024 Noted Resolved Calculus of kidney [N20.0] 12/20/2009 Essential hypertension [I10] 08/13/2014 Smoker [F17.200] 01/20/2016 Encounter for screening for diabetes mellitus [*07/28/2022 Screening for prostate cancer [Z12.5] 07/28/2022 Well adult exam [Z00.00] 05/20/2024 Screening for colon cancer [Z12.11] 05/20/2024 Disposition: Return for as scheduled. Follow-up and (more content not included)... Normal [facility] 06-18-2024 [facility] Office Visit (F[facility]WS ) -------- MAGDY GARCIA ([id number]) 1970 M Date Time Provider Department 06/18/24 3:20 PM NATTY MAN During your visit today, we recorded the following information about you: Pulse Respiration Blood pressure Weight 81/minute 14/minute 142/100 88 kg Natty Man, [place].CONVEYOR ATTENDANT 06/18/2024 3:34 PM Signed Chief Complaint Patient presents with: Follow Up HPI Magdy Benitez Ismael is a 53 year old male who presents here today for Above Complaints.. Patient presents for BP check. Patient reports he has been out of his HCTZ for 4 days. Patient reports he does not check his BP at home. Past medical history, appointments, medications, allergies reviewed. Previous Medical History PAST MEDICAL HISTORY Diagnosis Date Calculus of kidney staghorn Essential hypertension 08/13/2014 Hydronephrosis 12/20/2009 Left inguinal hernia 01/20/2016 S/p repair 2016 Smoker 01/20/2016 Tobacco use disorder 01/20/2016 Quit 12/2015 Previous Surgical History PAST SURGICAL HISTORY Procedure Laterality Date PAST SURGICAL HISTORY OF 2010 ESWL x3 PAST SURGICAL HISTORY OF 01/2010 percutaneous ultrasonic pyelolithotomy for left staghorn calculi PAST SURGICAL HISTORY OF 01/2010 stent removal under anesthesia REPAIR INGUINAL HERNIA Left 02/28/2016 Open procedure Family History FAMILY HISTORY Problem Relation Age of Onset Hypertension Father Kidney stones Father Kidney stones Sister Crohn's Disease Brother Hypertension Paternal Grandfather Thyroid No Family History Alzheimer's Disease No Family History Colon Cancer No Family History Prostate Cancer No Family History Breast Cancer No Family History Ovarian cancer No Family History Hyperlipidemia No Family History Diabetes No Family History Kidney Disease No Family History Seizures No Family History Stroke No Family History Patient Allergies ALLERGIES No Known Allergies Current Medications Current Outpatient Medications on File Prior to Visit Medication Sig lisinopril (ZESTRIL) 40 mg tablet Take 1 tablet by mouth two times a day. hydroCHLOROthiazide 25 mg tablet Take 1 tablet by mouth once daily. No current facility-administered medications on file prior to visit. Social History Social History Tobacco Use Smoking status: Some Days Types: Cigarettes Last attempt to quit: 12/27/2015 Years since quittin.4 Smokeless tobacco: Never Tobacco comments: uses electronic cigarette Substance Use Topics Alcohol use: Yes Comment: SOCIALLY-Holidays Drug use: No Review of Symptoms REVIEW OF SYSTEMS SEE HPI EXAM: BP 142/100 Pulse 81 Resp 14 Wt 88 kg (194 lb) BMI 30.38 kg/m? General Appearance: Well appearing, alert, in no acute distress, well-hydrated, well nourished.. Lungs: Lungs clear to auscultation. No wheezing, rhonchi, rales.. Heart: RRR without murmur, gallop, or rubs. No ectopy. Health Maintenance List Pneumococcal Vaccine(1 of 2 - PCV) Never done BP Controlled (<130/80) Never done Colorectal Cancer Screening Never done Behavioral Health Screening due on 12/01/2024 Shingrix Vaccine(1 of 2) due on 05/20/2025 Influenza Vaccine(1) due on 08/02/2024 Diabetes Screening due on 10/10/2024 Annual PCP Team Chronic Disease Visit due on 05/20/2025 Lipid Screening due on 10/10/2026 DTaP,Tdap,Td Vaccine(3 - Td or Tdap) due on 05/20/2034 Hepatitis C Screening Completed HIV Screening Completed Hepatitis B Vaccine Discontinued Covid-19 Vaccine Discontinued Data reviewed Last 5 Encounter BP Readings: Date: BP: 06/18/2024 142/100 05/20/2024 174/118 03/28/2023 158/100 10/26/2022 134/80 07/28/2022 150/100 ASSESSMENT/PLAN: 1. Essential hypertension - ICD9: 401.9, ICD10: I10 - Uncontrolled - Continue current medications - Recommend home blood pressure monitoring, to bring results to next visit - Encouraged sodium restriction, DASH or Mediterranean diet - Recommend regular aerobic exercise Follow up in 1 week once patient is back on HCTZ as he has been off it for 4 days. Natty Man APRN.CONVEYOR ATTENDANT Allergies As of Date: 06/18/2024 (No Known Allergies) Date Reviewed: 06/18/2024 Reviewed by: Camille Norris MA - Fully Assessed Reason for Visit: Follow Up [171] Primary Visit Diagnosis:Essential hypertension [I10] Prescriptions as of 06/18/2024 - lisinopril (ZESTRIL) 40 mg tablet Take 1 tablet by mouth two times a day. - hydroCHLOROthiazide 25 mg tablet Take 1 tablet by mouth once daily. Problem List As Of Date 06/18/2024 Noted Resolved Calculus of kidney [N20.0] 12/20/2009 Essential hypertension [I10] 08/13/2014 Smoker [F17.200] 01/20/2016 Encounter for screening for diabetes mellitus [*07/28/2022 Screening for prostate cancer [Z12.5] 07/28/2022 Well adult exam [Z00.00] 05/20/2024 Screening for colon cancer [Z12.11] 05/20/2024 Disposition: Ret (more content not included)... Normal [facility] 05-20-2024 [facility] Office Visit (FAMPWS ) -------- MAGDY GARCIA ([id number]) 1970 M Date Time Provider Department 05/20/24 3:20 PM SHAHEED KIRAN During your visit today, we recorded the following information about you: Pulse Respiration Blood pressure Weight 80/minute 16/minute 174/118 88 kg Shaheed Kiran MD 05/20/2024 5:10 PM Signed Chief Complaint Patient presents with: Physical HPI Magdy Garcia is a 53 year old male who presents here today for Physical. Patient with Hx of HTN, smoker. Patient c/o of difficulty sleeping. Has issues falling asleep and staying asleep. Has some social stressors. Does drink caffeine throughout the day. Tries to not have any after 6:00 PM. Patient says his does not c/o him snoring or tells him that he stops breathing. Patient continues to smoke at about 4 cigs a day. Past medical history, appointments, medications, allergies reviewed. Previous Medical History PAST MEDICAL HISTORY Diagnosis Date Calculus of kidney staghorn Essential hypertension 08/13/2014 Hydronephrosis 12/20/2009 Left inguinal hernia 01/20/2016 S/p repair 2016 Smoker 01/20/2016 Tobacco use disorder 01/20/2016 Quit 12/2015 Previous Surgical History PAST SURGICAL HISTORY Procedure Laterality Date PAST SURGICAL HISTORY OF 2010 ESWL x3 PAST SURGICAL HISTORY OF 01/2010 percutaneous ultrasonic pyelolithotomy for left staghorn calculi PAST SURGICAL HISTORY OF 01/2010 stent removal under anesthesia REPAIR INGUINAL HERNIA Left 02/28/2016 Open procedure Family History FAMILY HISTORY Problem Relation Age of Onset Hypertension Father Hypertension Paternal Grandfather Patient Allergies ALLERGIES No Known Allergies Current Medications Current Outpatient Medications on File Prior to Visit Medication Sig lisinopril-hydroCHLOROth iazide (ZESTORETIC) 20-12.5 mg per tablet Take 2 tablets by mouth every morning. varenicline (CHANTIX) 1 mg tablet Take 0.5 tablets by mouth once daily for 3 days, THEN 0.5 tablets twice daily for 4 days, THEN 1 tablet twice daily for 23 days. varenicline (CHANTIX) 1 mg tablet Take 1 tablet by mouth twice daily. No current facility-administered medications on file prior to visit. Social History Social History Tobacco Use Smoking status: Former Types: Cigarettes Quit date: 12/27/2015 Years since quittin.4 Smokeless tobacco: Never Tobacco comments: uses electronic cigarette Substance Use Topics Alcohol use: Yes Comment: SOCIALLY-Holidays Drug use: No Review of Symptoms REVIEW OF SYSTEMS GENERAL: No weight loss, malaise or fevers HEENT: Negative for frequent or significant headaches, No changes in hearing or vision, no nose bleeds or other nasal problems NECK: Negative for lumps, goiter, pain and significant neck swelling RESPIRATORY: Negative for cough, hemoptysis, wheezing, COPD, dyspnea or shortness of breath CARDIOVASCULAR: Negative for chest pain, leg swelling, hypertension, CHF or palpitations GI: No nausea, vomiting, or diarrhea, No heartburn or reflux symptoms, and no blood. : No history of dysuria, frequency or blood MUSCULOSKELETAL: Negative for joint pain or swelling, back pain or muscle pain SKIN: Negative for lesions, rash, and itching PSYCH: Negative for sleep disturbance, mood disorder and recent psychosocial stressors HEMATOLOGY/LYMPHOLOGY: Negative for prolonged bleeding, bruising easily or swollen nodes ENDOCRINE: Negative for cold or heat intolerance, polyuria, polydipsia and goiter NEURO: No history of headaches, syncope, paralysis, seizures or tremors EXAM: BP 196/120 (BP Site: Left Arm, BP Position: Sitting, BP Cuff Size: Regular Adult) Pulse 80 Resp 16 Wt 88 kg (194 lb) BMI 30.38 kg/m? BP 174/118 Pulse 80 Resp 16 Wt 88 kg (194 lb) BMI 30.38 kg/m? Last 5 Encounter Wt Readings: Date: Wt: 05/20/2024 88 kg (194 lb) 03/28/2023 88.9 kg (196 lb) 10/26/2022 88.8 kg (195 lb 12.8 oz) 07/28/2022 90.3 kg (199 lb) 10/12/2021 93.9 kg (207 lb) General Appearance: Well appearing, alert, in no acute distress, well-hydrated, well nourished.. Skin: Skin color, texture, turgor normal, no suspicious rashes or lesions. Head: Normocephalic, no masses, lesions, tenderness or abnormalities. Eyes: Anicteric sclera. Pupils are equally round and reactive to light. Extraocular movements are intact. . Ears: External ears normal, canals clear. Nose/Sinuses: Nares normal, septum midline, mucosa normal, no drainage or sinus tenderness. Oropharynx: Lips, mucosa, and tongue normal, teeth and gums normal, oropharynx normal. Neck: Supple, no adenopathy; thyroid symmetric, normal size, no bruits. Lungs: Lungs clear to auscultation. No wheezing, rhonchi, rales.. Heart: RRR without murmur, gallop, or rubs. No ectopy. Abdomen: Normal abdominal exam, Abdomen soft, non-tender. Bowel so (more content not included)... Normal [facility] XR Chest PA and Lateralon IMPRESSION: Focal atelectasis or scarring overlying the left lower lung. Hazardous Material Specialist: PSCYunior Transcribe Date/Time: Jul 25 2021 10:19A Dictated by : JUAN BUTLER MD This examination was interpreted and the report reviewed and electronically signed by: JUAN BUTLER MD on Jul 25 2021 10:20AM [facility] DIVISION OF RADIOLOGY * * *Final Report* * * DATE OF EXAM: Jul 25 2021 10:18AM WOX [id number] - XR CHEST 2V FRONTAL/LAT / PROCEDURE REASON: Rhonchi at right lung base * * * * Physician Interpretation * * * * EXAMINATION: CHEST RADIOGRAPH (2 VIEW FRONTAL & LATERAL) CLINICAL HISTORY: Rhonchi at right lung base MQ: [id number]_6 EXAM DATE/TIME: 07/25/2021 10:18 AM COMPARISON: Chest x-ray on 12/09/2009. RESULT: Lines, tubes, and devices: None. Lungs and pleura: Focal atelectasis or scarring overlying the left lower lung, likely within the lingula. The remaining lungs are clear. No mass lesion seen. No pleural effusions or pneumothorax. Cardiomediastinal silhouette: Normal cardiomediastinal silhouette. Bones and soft tissues: Unremarkable. DIVISION OF RADIOLOGY Provider, [facility] - 07/25/2021 * * *Final Report* * * DATE OF EXAM: Jul 25 2021 10:18AM WOX [id number] - XR CHEST 2V FRONTAL/LAT / PROCEDURE REASON: Rhonchi at right lung base * * * * Physician Interpretation * * * * EXAMINATION: CHEST RADIOGRAPH (2 VIEW FRONTAL & LATERAL) CLINICAL HISTORY: Rhonchi at right lung base MQ: [id number]_6 EXAM DATE/TIME: 07/25/2021 10:18 AM COMPARISON: Chest x-ray on 12/09/2009. RESULT: Lines, tubes, and devices: None. Lungs and pleura: Focal atelectasis or scarring overlying the left lower lung, likely within the lingula. The remaining lungs are clear. No mass lesion seen. No pleural effusions or pneumothorax. Cardiomediastinal silhouette: Normal cardiomediastinal silhouette. Bones and soft tissues: Unremarkable. IMPRESSION IMPRESSION: Focal atelectasis or scarring overlying the left lower lung. Hazardous Material Specialist: LIGIA Transcribe Date/Time: Jul 25 2021 10:19A Dictated by : JUAN BUTLER MD This examination was interpreted and the report reviewed and electronically signed by: JUAN BUTLER MD on Jul 25 2021 10:20AM EST [facility] Radiology Study observation (narrative) [facility] XR Chest PA and LateralOrder ed By: [facility] Provider on 07-25-2021 [facility] XR Knee - left 4 Viewson IMPRESSION: Small ashley int effusion of the left knee. Hazardous Material Specialist: [facility] Transcribe Date/Time: May 31 2021 12:50P Dictated by : JUAN BUTLER MD This examination was interpreted and the report reviewed and electronically signed by: JUAN BUTLER MD on May 31 2021 12:55PM [facility] DIVISION OF RADIOLOGY * * *Final Report* * * DATE OF EXAM: May 31 2021 12:45PM WOX [id number] - XR KNEE 4V AP/PA BOTH+LAT/TEETEE LT / PROCEDURE REASON: Acute pain of left knee * * * * Physician Interpretation * * * * EXAM TITLE: XR KNEE 4V AP/PA BOTH+LAT/TEETEE LT EXAM DATE/TIME: 05/31/2021 12:45 PM COMPARISON: None. CLINICAL INDICATION/HISTORY: Left knee pain. TECHNIQUE: AP/PA, lateral and sunrise views of the left knee are presented. FINDINGS: No acute fractures or subluxations are noted. Bony fragmentation along the tibial tubercle, likely chronic. No obvious osteophyte formation. The joint spaces are well preserved. There appears to be a small joint effusion. The mineralization of the bones is normal. There is no significant soft tissue swelling. DIVISION OF RADIOLOGY Provider, Carly [facility] [place] - 05/31/2021 * * *Final Report* * * DATE OF EXAM: May 31 2021 12:45PM WOX [id number] - XR KNEE 4V AP/PA BOTH+LAT/TEETEE LT / PROCEDURE REASON: Acute pain of left knee * * * * Physician Interpretation * * * * EXAM TITLE: XR KNEE 4V AP/PA BOTH+LAT/TEETEE LT EXAM DATE/TIME: 05/31/2021 12:45 PM COMPARISON: None. CLINICAL INDICATION/HISTORY: Left knee pain. TECHNIQUE: AP/PA, lateral and sunrise views of the left knee are presented. FINDINGS: No acute fractures or subluxations are noted. Bony fragmentation along the tibial tubercle, likely chronic. No obvious osteophyte formation. The joint spaces are well preserved. There appears to be a small joint effusion. The mineralization of the bones is normal. There is no significant soft tissue swelling. IMPRESSION IMPRESSION: Small joint effusion of the left knee. Hazardous Material Specialist: PSCB Transcribe Date/Time: May 31 2021 12:50P Dictated by : JUAN BUTLER MD This examination was interpreted and the report reviewed and electronically signed by: JUAN BUTLER MD on May 31 2021 12:55PM EST [facility] Radiology Study observation (narrative) [facility] XR Knee - left 4 ViewsOrdere d By: Ccf Provider on 05-31-2021 [facility] XR FOOT MINIMUM 3 VIEWS LEFT on 01-07-2019 XR FOOT MINIMUM 3 VIEWS LEFT ORIGINAL XR FOOT MINIMUM 3 VIEWS LEFT CLINICAL STATEMENT: pain COMPARISON: None FINDINGS:There is no acute fracture or dislocation confirmed. The soft tissue structures are grossly unremarkable. IMPRESSION:No acute process Interpreted By: May Glover MD Preliminary Report By: May Glover MD Electronically Signed By: May Glover MD Dictated Date: 01/07/2019 9:47:23 AM Prelim Date: 01/07/2019 9:47:23 AM Sign Date: 01/07/2019 9:47:53 AM Normal [facility] ([place]) Vital Signs Date Time Vital Sign Value Performing Clinician Facility 06-30-2024 15:04-0400 Body mass index (BMI) [Ratio] 30.23 kg/m2 Natty Man INDUSTRIAL SAFETY AND HEALTH TECHNICIAN.CONVEYOR ATTENDANT Work Phone: [facility] 06-30-2024 15:04-0400 Body weight 87.54 kg Natty Man INDUSTRIAL SAFETY AND HEALTH TECHNICIAN.CONVEYOR ATTENDANT Work Phone: [facility] 06-30-2024 15:04-0400 Diastolic blood pressure 88 mm[Hg] Natty Man INDUSTRIAL SAFETY AND HEALTH TECHNICIAN.CONVEYOR ATTENDANT Work Phone: [facility] 06-30-2024 15:04-0400 Heart rate 93 /min Natty Man INDUSTRIAL SAFETY AND HEALTH TECHNICIAN.CONVEYOR ATTENDANT Work Phone: [facility] 06-30-2024 15:04-0400 Respiratory rate 16 /min Natty Man INDUSTRIAL SAFETY AND HEALTH TECHNICIAN.CONVEYOR ATTENDANT Work Phone: [facility] 06-30-2024 15:04-0400 Systolic blood pressure 122 mm[Hg] Natty Man INDUSTRIAL SAFETY AND HEALTH TECHNICIAN.CONVEYOR ATTENDANT Work Phone: [facility] 06-18-2024 15:06-0400 Body mass index (BMI) [Ratio] 30.38 kg/m2 Natty Man INDUSTRIAL SAFETY AND HEALTH TECHNICIAN.CONVEYOR ATTENDANT Work Phone: [facility] 06-18-2024 15:06-0400 Body weight 88 kg Natty Man INDUSTRIAL SAFETY AND HEALTH TECHNICIAN.CONVEYOR ATTENDANT Work Phone: [facility] 06-18-2024 15:06-0400 Diastolic blood pressure 100 mm[Hg] Natty Man INDUSTRIAL SAFETY AND HEALTH TECHNICIAN.CONVEYOR ATTENDANT Work Phone: [facility] 06-18-2024 15:06-0400 Heart rate 81 /min Natty Man INDUSTRIAL SAFETY AND HEALTH TECHNICIAN.CONVEYOR ATTENDANT Work Phone: [facility] 06-18-2024 15:06-0400 Respiratory rate 14 /min Natty Man INDUSTRIAL SAFETY AND HEALTH TECHNICIAN.CONVEYOR ATTENDANT Work Phone: [facility] 06-18-2024 15:06-0400 Systolic blood pressure 142 mm[Hg] Natty Man INDUSTRIAL SAFETY AND HEALTH TECHNICIAN.CONVEYOR ATTENDANT Work Phone: [facility] 05-20-2024 15:40-0400 Diastolic blood pressure 118 mm[Hg] Shaheed Kiran MD Work Phone: [facility] 05-20-2024 15:40-0400 Systolic blood pressure 174 mm[Hg] Shaheed Kiran MD Work Phone: [facility] 05-20-2024 15:13-0400 Body mass index (BMI) [Ratio] 30.38 kg/m2 Shaheed Kiran MD Work Phone: [facility] 05-20-2024 15:13-0400 Body weight 88 kg Shaheed Kiran MD Work Phone: [facility] 05-20-2024 15:13-0400 Heart rate 80 /min Shaheed Kiran MD Work Phone: [facility] 05-20-2024 15:13-0400 Respiratory rate 16 /min Shaheed Kiran MD Work Phone: [facility] 03-28-2023 15:41-0400 Body weight 88.91 kg Natty Man INDUSTRIAL SAFETY AND HEALTH TECHNICIAN.CONVEYOR ATTENDANT Work Phone: [facility] 03-28-2023 15:41-0400 Diastolic blood pressure 100 mm[Hg] Natty Man INDUSTRIAL SAFETY AND HEALTH TECHNICIAN.CONVEYOR ATTENDANT Work Phone: [facility] 03-28-2023 15:41-0400 Heart rate 98 /min Natty Man INDUSTRIAL SAFETY AND HEALTH TECHNICIAN.CONVEYOR ATTENDANT Work Phone: [facility] 03-28-2023 15:41-0400 Respiratory rate 16 /min Natty Man INDUSTRIAL SAFETY AND HEALTH TECHNICIAN.CONVEYOR ATTENDANT Work Phone: [facility] 03-28-2023 15:41-0400 Systolic blood pressure 158 mm[Hg] Natty Man INDUSTRIAL SAFETY AND HEALTH TECHNICIAN.CONVEYOR ATTENDANT Work Phone: [facility] 01-02-2023 02:30-0500 Diastolic blood pressure 107 mm[Hg] [facility] 01-02-2023 02:30-0500 Systolic blood pressure 144 mm[Hg] [facility] 01-02-2023 02:09-0500 Body height 170.18 cm [facility] 01-02-2023 02:09-0500 Body mass index (BMI) [Ratio] 29 kg/m2 [facility] 01-02-2023 02:09-0500 Body temperature 97.9 [degF] [facility] 01-02-2023 02:09-0500 Body weight 83.91 kg [facility] 01-02-2023 02:09-0500 Heart rate 86 /min [facility] 01-02-2023 02:09-0500 Respiratory rate 16 /min [facility] 01-02-2023 02:09-0500 SaO2% (BldA) [Mass fraction] 98 % [facility] 10-26-2022 12:32-0500 Body temperature 97.59 [degF] Tray Trivedi MD Work Phone: [facility] 10-26-2022 12:32-0500 Body weight 88.81 kg Tray Trivedi MD Work Phone: [facility] 10-26-2022 12:32-0500 Diastolic blood pressure 80 mm[Hg] Tray Trivedi MD Work Phone: [facility] 10-26-2022 12:32-0500 Heart rate 116 /min Tray Trivedi MD Work Phone: [facility] 10-26-2022 12:32-0500 Respiratory rate 18 /min Tray Trivedi MD Work Phone: [facility] 10-26-2022 12:32-0500 SaO2% (BldA) [Mass fraction] 96 % Tray Trivedi MD Work Phone: [facility] 10-26-2022 12:32-0500 Systolic blood pressure 134 mm[Hg] Tray Trivedi MD Work Phone: [facility] 07-28-2022 08:46-0400 Body temperature 98.1 [degF] Shaheed Kiran MD Work Phone: [facility] 07-28-2022 08:46-0400 Body weight 90.27 kg Shaheed Kiran MD Work Phone: [facility] 07-28-2022 08:46-0400 Diastolic blood pressure 100 mm[Hg] Shaheed Kiran MD Work Phone: [facility] 07-28-2022 08:46-0400 Heart rate 72 /min Shaheed Kiran MD Work Phone: [facility] 07-28-2022 08:46-0400 Respiratory rate 18 /min Shaheed Kiran MD Work Phone: [facility] 07-28-2022 08:46-0400 Systolic blood pressure 150 mm[Hg] Shaheed Kiran MD Work Phone: [facility] Encounters Encounter Date Encounter Type Care Provider Facility Start: 12-10-2024 End: 12-10-2024 Chart abstracting Shaheed Kiran MD Work Phone: [facility] [place] Comment on above: ER Discharge Summary Start: 12-09-2024 End: 12-09-2024 Emergency department patient visit [facility] Facility:[facility] Start: 11-26-2024 End: 11-27-2024 Refill Natty Man INDUSTRIAL SAFETY AND HEALTH TECHNICIAN.CONVEYOR ATTENDANT Work Phone: [facility] [place] Comment on above: Refill Request Start: 06-30-2024 End: 06-30-2024 Patient encounter procedure Natty Man INDUSTRIAL SAFETY AND HEALTH TECHNICIAN.CONVEYOR ATTENDANT Work Phone: [facility] [place] Comment on above: Essential hypertensi on (Primary Dx) Start: 06-30-2024 End: 06-30-2024 ambulatory NATTY MAN Facility:[facility] Start: 06-18-2024 End: 06-18-2024 Patient encounter procedure Natty Man INDUSTRIAL SAFETY AND HEALTH TECHNICIAN.CONVEYOR ATTENDANT Work Phone: [facility] [place] Comment on above: Essential hypertensi on (Primary Dx) Start: 06-18-2024 End: 06-18-2024 ambulatory NATTY KNOBLE Facility:[facility] Start: 05-20-2024 Encounter for genera l adult medical examination without abnormal findings SHAHEED KIRAN [facility] Start: 05-20-2024 End: 05-20-2024 Patient encounter procedure Shaheed Kiran MD Work Phone: [facility] [place] Comment on above: Well adult exam (Octavia caroline Dx); Essential hypertension; Smoker; Encounter for immunization; Encounter for screening for diabetes mellitus; Screening for prostate cancer; Screening for colon cancer Start: 05-20-2024 End: 05-20-2024 ambulatory SHAHEED KIRAN Facility:[facility] Start: 05-20-2024 End: 05-20-2024 Patient encounter status Shaheed Kiran MD Work Phone: [facility] Work Phone: Start: 10-11-2023 Telephone encounter Shaheed Kiran MD Work Phone: [facility] Comment on above: Medication Problem Start: 03-28-2023 End: 03-28-2023 Patient encounter procedure Natty Man APRN.CONVEYOR ATTENDANT Work Phone: [facility] [place] Comment on above: Medication managemen t (Primary Dx); Encounter for lipid screening for cardiovascular disease; Screening for diabetes mellitus; Essential hypertension; Encounter for smoking cessation counseling Start: 03-11-2023 Refill Shaheed lipscomb MD Work Phone: [facility] Comment on above: Refill Request Start: 01-02-2023 End: 01-02-2023 [facility] Start: 10-26-2022 End: 10-26-2022 Patient encounter procedure Tray Trivedi MD Work Phone: [facility] Comment on above: Acute non-recurrent sinusitis, unspecified location (Primary Dx) Start: 07-28-2022 End: 07-28-2022 Patient encounter procedure Shaheed Kiran MD Work Phone: [facility] [place] Comment on above: Essential hypertensi on (Primary Dx); Smoker; Encounter for screening for diabetes mellitus; Screening for prostate cancer Start: 07-25-2021 End: 07-25-2021 Subsequent hospital visit by physician Mario [facility] [place] Work Phone: Radiology Comment on above: Rhonchi at right jadiel g base [R09.89] Start: 05-31-2021 End: 05-31-2021 Subsequent hospital visit by physician Xr [facility] [place] Work Phone: Radiology Comment on above: Acute pain of left k nee [M25.562] Start: 01-07-2019 End: 01-07-2019 Emergency department patient visit [facility] Facility:B Procedures Date Procedure Procedure Detail Performing Clinician Start: 07-28-2022 Adult depression screening assessment Shaheed Kiran MD Work Phone: Start: 10-10-2021 Lipid 1996 panel - S soha or Plasma Shaheed Kiran MD Work Phone: Start: 07-25-2021 Radiologic exam ches t 2 views Javier Tejeda INDUSTRIAL SAFETY AND HEALTH TECHNICIAN.CONVEYOR ATTENDANT Work Phone: Start: 05-31-2021 Radiologic exam knee complete 4/more views Kyree Burgos INDUSTRIAL SAFETY AND HEALTH TECHNICIAN.CONVEYOR ATTENDANT Work Phone: Plan of Treatment Date Care Activity Detail Author Start: 05-20-2034 Urine microalbumin profile DTaP,Tdap,Td Vaccine (3 - Td or Tdap) [facility] Start: 10-10-2026 Lipid 1996 panel - Serum or Plasma Lipid Screening [facility] Start: 10-10-2026 Lipid panel Lipid Screening [facility] Start: 10-10-2026 LIPID SCREEN LIPID SCREEN [facility] Start: 06-30-2025 Annual PCP Team Site Planner aime Disease Visit Annual PCP Team Chronic Disease Visit [facility] Start: 06-18-2025 Annual PCP Team Site Planner aime Disease Visit Annual PCP Team Chronic Disease Visit [facility] Start: 05-26-2025 End: 05-26-2025 Patient encounter procedure 05/26/2025 3:20 PM EDT Office Visit Family [facility] [address] [place] [address] Shaheed Kiran MD [address] [place] [address] Physical [facility] [place] Comment on above: Physical Start: 05-20-2025 Annual PCP Team Site Planner aime Disease Visit Annual PCP Team Chronic Disease Visit [facility] Start: 05-20-2025 Shingrix Vaccine (1 of 2) Shingrix Vaccine (1 of 2) [facility] Comment on above: Postponed from 08/12 (Insurance Coverage) Start: 12-01-2024 Behavioral Health Screening Behavioral Health Screening [facility] Comment on above: Postponed from 12/02 (Declined at this time) Start: 11-26-2024 End: 02-25-2025 Basic metabolic 2000 panel - Serum or Plasma BASIC METABOLIC PANEL Lab Routine Medication management Expected: 11/26/2024, Expires: 02/25/2025 [facility] Work Phone: Comment on above: Expected: 11/26/2024 , Expires: 02/25/2025 Start: 10-10-2024 DIABETES SCREEN DIABETES SCREEN [facility] Start: 10-10-2024 Diabetes Screening Diabetes Screenks g [facility] Start: 08-02-2024 Influenza vaccination [facility] Start: 06-25-2024 End: 06-25-2024 Patient encounter procedure 06/25/2024 3:20 PM EDT Office Visit [facility] [place] [address] [place], [place] [id number] Natty Man, INDUSTRIAL SAFETY AND HEALTH TECHNICIAN.CONVEYOR ATTENDANT [address] [place], [place] [id number] 1 week follow up bp [facility] [place] Comment on above: 1 week follow up bp Start: 06-18-2024 End: 06-18-2024 Patient encounter procedure 06/18/2024 3:20 PM EDT Office Visit [facility] [place] [address] [place] [address] Natty Man, INDUSTRIAL SAFETY AND HEALTH TECHNICIAN.CONVEYOR ATTENDANT [address] [place], [place] [id number] 4 week follow up medication [facility] [place] Comment on above: 4 week follow up med ication Start: 05-20-2024 End: 08-19-2024 Comprehensive metabolic 2000 panel - Serum or Plasma COMPREHENSIVE METABOLIC PANEL Lab Routine Essential hypertension Expected: 05/20/2024, Expires: 08/19/2024 [facility] Comment on above: Expected: 05/20/2024 , Expires: 08/19/2024 Start: 05-20-2024 End: 08-19-2024 Hemoglobin A1c in Blood HEMOGLOBIN A1C Lab Routine Well adult exam Encounter for screening for diabetes mellitus Expected: 05/20/2024, Expires: 08/19/2024 [facility] Comment on above: Expected: 05/20/2024 , Expires: 08/19/2024 Start: 05-20-2024 End: 08-19-2024 LIPID PANEL, NONFASTING LIPID PANEL, NONFASTING Lab Routine Essential hypertension Expected: 05/20/2024, Expires: 08/19/2024 [facility] Comment on above: Expected: 05/20/2024 , Expires: 08/19/2024 Start: 05-20-2024 End: 08-19-2024 Prostate specific Ag [Mass/volume] in Serum or Plasma PROSTATE-SPECIFIC ANTIGEN DIAGNOSTIC Lab Routine Well adult exam Screening for prostate cancer Expected: 05/20/2024, Expires: 08/19/2024 [facility] Comment on above: Expected: 05/20/2024 , Expires: 08/19/2024 Start: 05-20-2024 End: 08-19-2024 Urinalysis complete panel - Urine URINALYSIS, WITH MICROSCOPIC Lab Routine Essential hypertension Expected: 05/20/2024, Expires: 08/19/2024 [facility] Comment on above: Expected: 05/20/2024 , Expires: 08/19/2024 Start: 03-28-2024 ANNUAL PCP TEAM REGULATORY SERVICES CONSULTANT AIME DISEASE VISIT ANNUAL PCP TEAM CHRONIC DISEASE VISIT [facility] Start: 08-02-2023 Covid-19 Vaccine ( season) Covid-19 Vaccine () [facility] Start: 08-02-2023 Influenza vaccination C [facility] Start: 07-28-2023 Adult depression screening assessment DEPRESSION SCREENING [facility] Start: 07-28-2023 ANNUAL PCP TEAM REGULATORY SERVICES CONSULTANT AIME DISEASE VISIT ANNUAL PCP TEAM CHRONIC DISEASE VISIT [facility] Start: 05-04-2023 Urine microalbumin profile [facility] Start: 03-28-2023 End: 05-28-2023 CBC W Auto Differential panel - Blood CBC + DIFF Lab Routine Medication management Expected: 03/28/2023, Expires: 05/28/2023 [facility] Work Phone: Comment on above: Expected: 03/28/2023 , Expires: 05/28/2023 Start: 03-28-2023 End: 05-28-2023 Comprehensive metabolic 2000 panel - Serum or Plasma COMP METABOLIC PANEL Lab Routine Medication management Expected: 03/28/2023, Expires: 05/28/2023 [facility] Work Phone: Comment on above: Expected: 03/28/2023 , Expires: 05/28/2023 Start: 03-28-2023 End: 05-28-2023 Hemoglobin A1c in Blood HGB A1C Lab Routine Screening for diabetes mellitus Expected: 03/28/2023, Expires: 05/28/2023 [facility] Work Phone: Comment on above: Expected: 03/28/2023 , Expires: 05/28/2023 Start: 03-28-2023 End: 05-28-2023 LIPID PANEL, NONFASTING LIPID PANEL, NONFASTING Lab Routine Encounter for lipid screening for cardiovascular disease Expected: 03/28/2023, Expires: 05/28/2023 [facility] Work Phone: Comment on above: Expected: 03/28/2023 , Expires: 05/28/2023 Start: 12-02-2022 DEPRESSION ASSESSMENT DEPRESSION ASS ESSMENT [facility] Start: 08-02-2022 Influenza vaccination INFLUENZA (#1) [facility] Start: 07-28-2022 End: 09-27-2022 Comprehensive metabolic 2000 panel - Serum or Plasma COMP METABOLIC PANEL Lab Routine Essential hypertension Expected: 07/28/2022, Expires: 09/27/2022 [facility] Work Phone: Comment on above: Expected: 07/28/2022 , Expires: 09/27/2022 Start: 07-28-2022 End: 09-27-2022 Hemoglobin A1c in Blood HGB A1C Lab Routine Encounter for screening for diabetes mellitus Expected: 07/28/2022, Expires: 09/27/2022 [facility] Work Phone: Comment on above: Expected: 07/28/2022 , Expires: 09/27/2022 Start: 07-28-2022 End: 09-27-2022 LIPID PANEL, NONFASTING LIPID PANEL, NONFASTING Lab Routine Essential hypertension Expected: 07/28/2022, Expires: 09/27/2022 [facility] Work Phone: Comment on above: Expected: 07/28/2022 , Expires: 09/27/2022 Start: 07-28-2022 End: 09-27-2022 Prostate specific Ag [Mass/volume] in Serum or Plasma PSA/PROSTSPECAG DIAG Lab Routine Screening for prostate cancer Expected: 07/28/2022, Expires: 09/27/2022 [facility] Work Phone: Comment on above: Expected: 07/28/2022 , Expires: 09/27/2022 Start: 07-28-2022 End: 09-27-2022 Urinalysis complete panel - Urine URINALYSIS, WITH MICROSCOPIC Lab Routine Essential hypertension Expected: 07/28/2022, Expires: 09/27/2022 [facility] Work Phone: Comment on above: Expected: 07/28/2022 , Expires: 09/27/2022 Start: 05-07-2022 COVID-19 VACCINE (4 - Booster for Pfizer series) COVID-19 VACCINE (4 - Booster for Pfizer series) [facility] Start: 03-04-2022 COVID-19 VACCINE (4 - Booster for Pfizer series) COVID-19 VACCINE (4 - Booster for Pfizer series) [facility] Start: 12-02-2021 DEPRESSION ASSESSMENT DEPRESSION ASS ESSMENT [facility] Start: 2020 SHINGRIX VACCINE (1 of 2) SHINGRIX VACCINE (1 of 2) [facility] Start: 2015 COLOGUARD (FIT-DNA) COLOGUARD (FIT-D NA) [facility] Start: 2015 Colonoscopy COLONOSCOPY [facility] Start: 2015 COLORECTAL CANCER SCREENING COLORECTAL CANCER SCREENING [facility] Start: [address] COLONOGRAPHY [facility] Start: 2015 FECAL OCCULT BLOOD FECAL OCCULT BLOO D [facility] Start: 2015 Screening for malign ant neoplasm of colon [facility] Start: 2015 SIGMOIDOSCOPY SIGMOIDOSCOPY [facility] Start: 1989 Pneumococcal Vaccine : 50+ (1 of 2 - PCV) Pneumococcal Vaccine: 50+ (1 of 2 - PCV) [facility] Start: 1988 Anxiety Screening Anxiety Screening [facility] Start: 1988 BP CONTROLLED (<130/80) BP CONTROLLE D (<130/80) [facility] Start: 1988 Depression Screening Depression Scre ening [facility] Start: 1976 PNEUMOCOCCAL (1 - PCV) PNEUMOCOCCAL (1 - PCV) [facility] Start: 1976 Pneumococcal vaccination Pneumococcal Vaccine (1 of 2 - PCV) [facility] Start: 1970 HEPATITIS B (1 of 3 - 3-dose series) HEPATITIS B (1 of 3 - 3-dose series) [facility] Start: 1970 Hepatitis B Vaccine (1 of 3 - 3-dose series) Hepatitis B Vaccine (1 of 3 - 3-dose series) [facility] Hemoglobin.gastroint est inal.lower [Presence] in Stool by Immunoassay IMMUNOCHEMICAL FECAL OCCULT BLOOD TEST Lab Routine Screening for colon cancer Ordered: 05/20/2024 [facility] Work Phone: Comment on above: Ordered: 05/20/2024 Patient Education ED Angioedema [facility] Work Phone: Patient referral [facility] Work Phone: [facility] Immunizations Immunization Date Immunization Notes Care Provider Sarah rae 05-20-2024 tetanus toxoid, redu mark diphtheria toxoid, and acellular pertussis vaccine, adsorbed Shaheed Kiran MD Work Phone: [facility] 10-16-2019 influenza virus vaccine, unspecified formulation Shaheed Kiran MD Work Phone: [facility] 05-04-2013 tetanus toxoid, redu mark diphtheria toxoid, and acellular pertussis vaccine, adsorbed Shaheed Kiran MD Work Phone: [facility] Work Phone: Payers Date Payer Category Payer Self-pay [id number] 2020 Private Health Insurance [id number] 2019 Private Health Insurance [id number] 1970 Unknown [id number] Unknown [id number] Social History Date Type Detail Facility Start: 06-01-2019 End: 07-28-2022 Tobacco smoking status NHIS Light tobacco smoker [facility] End: 12-27-2015 History of tobacco use Cigarette Smoker [facility] Start: 07-28-2022 End: 05-20-2024 Tobacco use and exposure Smokeless tobacco non-user [facility] Start: 07-29-2022 End: 05-20-2024 Alcohol intake Current drinker of alcohol (finding) [facility] Start: 07-28-2022 History SDOH Alcohol Frequency 3 [facility] Start: 07-28-2022 History SDOH Alcohol Std Drinks 2 [facility] Start: 03-09-2021 End: 07-28-2022 History SDOH Alcohol Binge 1 [facility] Start: 02-16-2016 History SDOH Alcohol Comment SOCIALLY-Holidays [facility] Start: 07-28-2022 History SDOH Stress 5 [facility] Start: 03-08-2021 Education 15 [facility] Start: 02-16-2016 End: 07-28-2022 Tobacco Comment uses electronic cigarette [facility] Start: 1970 Sex Assigned At Not on file [facility] Start: 05-01-2021 End: 10-26-2022 Exposure to SARS-CoV-2 (event) Not sure [facility] Start: 10-26-2022 Tobacco smoking status NHIS Ex-smoker [facility] End: 12-27-2015 History of tobacco use Current smoker [facility] Start: 01-02-2023 Tobacco smoking status ALIS Unknown if ever smoked [facility] Start: 01-14-2020 None [facility] Start: 01-14-2020 With Family [facility] Start: 1970 Sex Assigned At Male [facility] Start: 07-27-2022 End: 04-25-2023 History of Social function [facility] Start: 07-27-2022 End: 04-25-2023 Social connection and isolation panel [facility] Do you belong to any clubs or organizations such as yazidism groups, unions, fraternal or athletic groups, or school groups? No [facility] Are you now , , , , never or living with a partner? [facility] How often to you hav e a drink containing alcohol? 2-4 times a month [facility] How many standard dr inks containing alcohol do you have on a typical day? 3 or 4 [facility] How often do you hav e 6 or more drinks on 1 occasion? Never [facility] How hard is it for y ou to pay for the very basics like food, housing, medical care, and heating Somewhat hard [facility] Adult Depression Screening Assessment 0 [facility] Do you feel stress - tense, restless, nervous, or anxious, or unable to sleep at night because your mind is troubled all the time - these days [OSQ] Very much [facility] (I/We) worried krishna er (my/our) food would run out before (I/we) got money to buy more. Never true [facility] Start: 05-20-2024 Tobacco smoking status NHIS Occasional tobacco smoker [facility] Do you feel stress - tense, restless, nervous, or anxious, or unable to sleep at night because your mind is troubled all the time - these days [OSQ] Rather much [facility] Start: 05-19-2024 Sexual orientation Heterosexual (finding) [facility] Are you now , , , , never or living with a partner? [facility] How many standard dr inks containing alcohol do you have on a typical day? 1 or 2 [facility] Medical Equipment Procedure Code Equipment Code Equipment Origin al Text Equipment Identifier Dates Mesh Bard Perfix 1.9in Large Polypropylene 1.6in Surgical Plug Monofilament - [id number] Start: 02-28-2016 Mental Status Date Assessment Result Facility 01-02-2023 Cognitive function Level Of Cons ciousness Awake;Alert;Appropriate;Follow s Commands [facility] Work Phone: Clinical Notes 05-31-2021 to 12-10-2024 Cory Clark LPN - 12/10/2024 7:12 AM ESTTelephone Encounter - Dora Elaine MA - 11/27/2024 1:26 PM ESTTelephone Encounter - Dora Elaine MA - 11/27/2024 1:26 PM EST Note Date & Type Note Facility 12-10-2024 Note HNO ID: [id number] Author: CORY CLARK LPN Service: ? Author Type: LICENSED NURSE Type: Progress Notes Filed: 12/10/2024 07:12 Note Text: Scan on 12/10/2024 12:08 AM by ProviderLeesa PA-C: Consultation - Emergency Medicine [facility] 12-10-2024 History of Present illness Narrative Scan on 12/10/2024 12:08 AM by ProviderLeesa PA-C: Consultation - Emergency Medicine documented in this encounter [facility] 11-27-2024 Telephone encounter Note Notified via [employer] Dora Elaine MA [facility] 11-27-2024 Miscellaneous Notes Notified via [employer] Dora Elaine MA Please let patient know he needs labs. Patient calling said he is out of the HCTZ, thought he had another refill, pharmacy said no he did not. LORI: 06/30/24 with DK NOV: 05/26/25-CPE with PCP Last refill: 05/20/24 Camille Aburto MA documented in this encounter [facility] 11-26-2024 Telephone encounter Note Please let patient know he needs labs. [facility] 11-26-2024 Telephone encounter Note Patient calling said he is out of the HCTZ, thought he had another refill, pharmacy said no he did not. [facility] 11-26-2024 Telephone encounter Note LORI: 06/30/24 with DK NOV: 05/26/25-CPE with PCP Last refill: 05/20/24 Camille Aburto MA [facility] 06-30-2024 Note HNO ID: [id number] Author: NATTY MAN APRN.CONVEYOR ATTENDANT Service: ? Author Type: Nurse Practitioner Type: Progress Notes Filed: 06/30/2024 15:13 Note Text: Chief Complaint No chief complaint on file. HPI Magdy Garcia is a 53 year old male who presents here today for Above Complaints.. Patient presents for BP follow up. Patient was seen 1 week ago but had been out of HCTZ for 4 days. Past medical history, appointments, medications, allergies reviewed. Previous Medical History PAST MEDICAL HISTORY Diagnosis Date Calculus of kidney staghorn Essential hypertension 08/13/2014 Hydronephrosis 12/20/2009 Left inguinal hernia 01/20/2016 S/p repair 2015 Smoker 01/20/2016 Tobacco use disorder 01/20/2016 Quit 12/2015 Previous Surgical History PAST SURGICAL HISTORY Procedure Laterality Date PAST SURGICAL HISTORY OF 2010 ESWL x3 PAST SURGICAL HISTORY OF 01/2010 percutaneous ultrasonic pyelolithotomy for left staghorn calculi PAST SURGICAL HISTORY OF 01/2010 stent removal under anesthesia REPAIR INGUINAL HERNIA Left 02/28/2016 Open procedure Family History FAMILY HISTORY Problem Relation Age of Onset Hypertension Father Kidney stones Father Kidney stones Sister Crohn's Disease Brother Hypertension Paternal Grandfather Thyroid No Family History Alzheimer's Disease No Family History Colon Cancer No Family History Prostate Cancer No Family History Breast Cancer No Family History Ovarian cancer No Family History Hyperlipidemia No Family History Diabetes No Family History Kidney Disease No Family History Seizures No Family History Stroke No Family History Patient Allergies ALLERGIES No Known Allergies Current Medications Current Outpatient Medications on File Prior to Visit Medication Sig lisinopril (ZESTRIL) 40 mg tablet Take 1 tablet by mouth two times a day. hydroCHLOROthiazide 25 mg tablet Take 1 tablet by mouth once daily. No current facility-administered medications on file prior to visit. Social History Social History Tobacco Use Smoking status: Some Days Types: Cigarettes Last attempt to quit: 12/27/2015 Years since quittin.5 Smokeless tobacco: Never Tobacco comments: uses electronic cigarette Substance Use Topics Alcohol use: Yes Comment: SOCIALLY-Holidays Drug use: No Review of Symptoms REVIEW OF SYSTEMS SEE HPI EXAM: BP 122/88 Pulse 93 Resp 16 Wt 87.5 kg (193 lb) BMI 30.23 kg/m? General Appearance: Well appearing, alert, in no acute distress, well-hydrated, well nourished.. Lungs: Lungs clear to auscultation. No wheezing, rhonchi, rales.. Heart: RRR without murmur, gallop, or rubs. No ectopy. Health Maintenance List Pneumococcal Vaccine(1 of 2 - PCV) Never done Depression Screening Never done Anxiety Screening Never done BP Controlled (<130/80) Never done Colorectal Cancer Screening Never done Shingrix Vaccine(1 of 2) due on 05/20/2025 Influenza Vaccine(1) due on 08/02/2024 Diabetes Screening due on 10/10/2024 Annual PCP Team Chronic Disease Visit due on 06/18/2025 Lipid Screening due on 10/10/2026 DTaP,Tdap,Td Vaccine(3 - Td or Tdap) due on 05/20/2034 Hepatitis C Screening Completed HIV Screening Completed Hepatitis B Vaccine Discontinued Covid-19 Vaccine Discontinued Data reviewed Last 5 Encounter BP Readings: Date: BP: 06/30/2024 122/88 06/18/2024 142/100 05/20/2024 174/118 03/28/2023 158/100 10/26/2022 134/80 ASSESSMENT/PLAN: 1. Essential hypertension - ICD9: 401.9, ICD10: I10 - Controlled - Continue current medications - Recommend home blood pressure monitoring, to bring results to next visit - Encouraged sodium restriction, DASH or Mediterranean diet - Recommend regular aerobic exercise - Discussed need for and benefit of weight loss. BMI 30.23 kg/(m2) Natty Man APRN.[facility] 06-30-2024 History of Present illness Narrative Chief Complaint No chief complaint on file. HPI Magdy Garcia is a 53 year old male who presents here today for Above Complaints.. Patient presents for BP follow up. Patient was seen 1 week ago but had been out of HCTZ for 4 days. Past medical history, appointments, medications, allergies reviewed. Previous Medical History PAST MEDICAL HISTORY Diagnosis Date Calculus of kidney staghorn Essential hypertension 08/13/2014 Hydronephrosis 12/20/2009 Left inguinal hernia 01/20/2016 S/p repair 2015 Smoker 01/20/2016 Tobacco use disorder 01/20/2016 Quit 12/2015 Previous Surgical History PAST SURGICAL HISTORY Procedure Laterality Date PAST SURGICAL HISTORY OF 2010 ESWL x3 PAST SURGICAL HISTORY OF 01/2010 percutaneous ultrasonic pyelolithotomy for left staghorn calculi PAST SURGICAL HISTORY OF 01/2010 stent removal under anesthesia REPAIR INGUINAL HERNIA Left 02/28/2016 Open procedure Family History FAMILY HISTORY Problem Relation Age of Onset Hypertension Father Kidney stones Father Kidney stones Sister Crohn's Disease Brother Hypertension Paternal Grandfather Thyroid No Family History Alzheimer's Disease No Family History Colon Cancer No Family History Prostate Cancer No Family History Breast Cancer No Family History Ovarian cancer No Family History Hyperlipidemia No Family History Diabetes No Family History Kidney Disease No Family History Seizures No Family History Stroke No Family History Patient Allergies ALLERGIES No Known Allergies Current Medications Current Outpatient Medications on File Prior to Visit Medication Sig lisinopril (ZESTRIL) 40 mg tablet Take 1 tablet by mouth two times a day. hydroCHLOROthiazide 25 mg tablet Take 1 tablet by mouth once daily. No current facility-administered medications on file prior to visit. Social History Social History Tobacco Use Smoking status: Some Days Types: Cigarettes Last attempt to quit: 12/27/2015 Years since quittin.5 Smokeless tobacco: Never Tobacco comments: uses electronic cigarette Substance Use Topics Alcohol use: Yes Comment: SOCIALLY-Holidays Drug use: No Review of Symptoms REVIEW OF SYSTEMS SEE HPI EXAM: BP 122/88 Pulse 93 Resp 16 Wt 87.5 kg (193 lb) BMI 30.23 kg/m General Appearance: Well appearing, alert, in no acute distress, well-hydrated, well nourished.. Lungs: Lungs clear to auscultation. No wheezing, rhonchi, rales.. Heart: RRR without murmur, gallop, or rubs. No ectopy. Health Maintenance List Pneumococcal Vaccine(1 of 2 - PCV) Never done Depression Screening Never done Anxiety Screening Never done BP Controlled (<130/80) Never done Colorectal Cancer Screening Never done Shingrix Vaccine(1 of 2) due on 05/20/2025 Influenza Vaccine(1) due on 08/02/2024 Diabetes Screening due on 10/10/2024 Annual PCP Team Chronic Disease Visit due on 06/18/2025 Lipid Screening due on 10/10/2026 DTaP,Tdap,Td Vaccine(3 - Td or Tdap) due on 05/20/2034 Hepatitis C Screening Completed HIV Screening Completed Hepatitis B Vaccine Discontinued Covid-19 Vaccine Discontinued Data reviewed Last 5 Encounter BP Readings: Date: BP: 06/30/2024 122/88 06/18/2024 142/100 05/20/2024 174/118 03/28/2023 158/100 10/26/2022 134/80 ASSESSMENT/PLAN: 1. Essential hypertension - ICD9: 401.9, ICD10: I10 - Controlled - Continue current medications - Recommend home blood pressure monitoring, to bring results to next visit - Encouraged sodium restriction, DASH or Mediterranean diet - Recommend regular aerobic exercise - Discussed need for and benefit of weight loss. BMI 30.23 kg/(m^2) Natty Man APRN.CONVEYOR ATTENDANT documented in this encounter [facility] 06-18-2024 Note HNO ID: [id number] Author: NATTY MAN APRN.CONVEYOR ATTENDANT Service: ? Author Type: Nurse Practitioner Type: Progress Notes Filed: 06/18/2024 15:34 Note Text: Chief Complaint Patient presents with: Follow Up HPI Magdy Garcia is a 53 year old male who presents here today for Above Complaints.. Patient presents for BP check. Patient reports he has been out of his HCTZ for 4 days. Patient reports he does not check his BP at home. Past medical history, appointments, medications, allergies reviewed. Previous Medical History PAST MEDICAL HISTORY Diagnosis Date Calculus of kidney staghorn Essential hypertension 08/13/2014 Hydronephrosis 12/20/2009 Left inguinal hernia 01/20/2016 S/p repair 2016 Smoker 01/20/2016 Tobacco use disorder 01/20/2016 Quit 12/2015 Previous Surgical History PAST SURGICAL HISTORY Procedure Laterality Date PAST SURGICAL HISTORY OF 2010 ESWL x3 PAST SURGICAL HISTORY OF 01/2010 percutaneous ultrasonic pyelolithotomy for left staghorn calculi PAST SURGICAL HISTORY OF 01/2010 stent removal under anesthesia REPAIR INGUINAL HERNIA Left 02/28/2016 Open procedure Family History FAMILY HISTORY Problem Relation Age of Onset Hypertension Father Kidney stones Father Kidney stones Sister Crohn's Disease Brother Hypertension Paternal Grandfather Thyroid No Family History Alzheimer's Disease No Family History Colon Cancer No Family History Prostate Cancer No Family History Breast Cancer No Family History Ovarian cancer No Family History Hyperlipidemia No Family History Diabetes No Family History Kidney Disease No Family History Seizures No Family History Stroke No Family History Patient Allergies ALLERGIES No Known Allergies Current Medications Current Outpatient Medications on File Prior to Visit Medication Sig lisinopril (ZESTRIL) 40 mg tablet Take 1 tablet by mouth two times a day. hydroCHLOROthiazide 25 mg tablet Take 1 tablet by mouth once daily. No current facility-administered medications on file prior to visit. Social History Social History Tobacco Use Smoking status: Some Days Types: Cigarettes Last attempt to quit: 12/27/2015 Years since quittin.4 Smokeless tobacco: Never Tobacco comments: uses electronic cigarette Substance Use Topics Alcohol use: Yes Comment: SOCIALLY-Holidays Drug use: No Review of Symptoms REVIEW OF SYSTEMS SEE HPI EXAM: BP 142/100 Pulse 81 Resp 14 Wt 88 kg (194 lb) BMI 30.38 kg/m? General Appearance: Well appearing, alert, in no acute distress, well-hydrated, well nourished.. Lungs: Lungs clear to auscultation. No wheezing, rhonchi, rales.. Heart: RRR without murmur, gallop, or rubs. No ectopy. Health Maintenance List Pneumococcal Vaccine(1 of 2 - PCV) Never done BP Controlled (<130/80) Never done Colorectal Cancer Screening Never done Behavioral Health Screening due on 12/01/2024 Shingrix Vaccine(1 of 2) due on 05/20/2025 Influenza Vaccine(1) due on 08/02/2024 Diabetes Screening due on 10/10/2024 Annual PCP Team Chronic Disease Visit due on 05/20/2025 Lipid Screening due on 10/10/2026 DTaP,Tdap,Td Vaccine(3 - Td or Tdap) due on 05/20/2034 Hepatitis C Screening Completed HIV Screening Completed Hepatitis B Vaccine Discontinued Covid-19 Vaccine Discontinued Data reviewed Last 5 Encounter BP Readings: Date: BP: 06/18/2024 142/100 05/20/2024 174/118 03/28/2023 158/100 10/26/2022 134/80 07/28/2022 150/100 ASSESSMENT/PLAN: 1. Essential hypertension - ICD9: 401.9, ICD10: I10 - Uncontrolled - Continue current medications - Recommend home blood pressure monitoring, to bring results to next visit - Encouraged sodium restriction, DASH or Mediterranean diet - Recommend regular aerobic exercise Follow up in 1 week once patient is back on HCTZ as he has been off it for 4 days. Natty Man APRN.[facility] 06-18-2024 History of Present illness Narrative Chief Complaint Patient presents with: Follow Up HPI Magdy Garcia is a 53 year old male who presents here today for Above Complaints.. Patient presents for BP check. Patient reports he has been out of his HCTZ for 4 days. Patient reports he does not check his BP at home. Past medical history, appointments, medications, allergies reviewed. Previous Medical History PAST MEDICAL HISTORY Diagnosis Date Calculus of kidney staghorn Essential hypertension 08/13/2014 Hydronephrosis 12/20/2009 Left inguinal hernia 01/20/2016 S/p repair 2015 Smoker 01/20/2016 Tobacco use disorder 01/20/2016 Quit 12/2015 Previous Surgical History PAST SURGICAL HISTORY Procedure Laterality Date PAST SURGICAL HISTORY OF 2010 ESWL x3 PAST SURGICAL HISTORY OF 01/2010 percutaneous ultrasonic pyelolithotomy for left staghorn calculi PAST SURGICAL HISTORY OF 01/2010 stent removal under anesthesia REPAIR INGUINAL HERNIA Left 02/28/2016 Open procedure Family History FAMILY HISTORY Problem Relation Age of Onset Hypertension Father Kidney stones Father Kidney stones Sister Crohn's Disease Brother Hypertension Paternal Grandfather Thyroid No Family History Alzheimer's Disease No Family History Colon Cancer No Family History Prostate Cancer No Family History Breast Cancer No Family History Ovarian cancer No Family History Hyperlipidemia No Family History Diabetes No Family History Kidney Disease No Family History Seizures No Family History Stroke No Family History Patient Allergies ALLERGIES No Known Allergies Current Medications Current Outpatient Medications on File Prior to Visit Medication Sig lisinopril (ZESTRIL) 40 mg tablet Take 1 tablet by mouth two times a day. hydroCHLOROthiazide 25 mg tablet Take 1 tablet by mouth once daily. No current facility-administered medications on file prior to visit. Social History Social History Tobacco Use Smoking status: Some Days Types: Cigarettes Last attempt to quit: 12/27/2015 Years since quittin.4 Smokeless tobacco: Never Tobacco comments: uses electronic cigarette Substance Use Topics Alcohol use: Yes Comment: SOCIALLY-Holidays Drug use: No Review of Symptoms REVIEW OF SYSTEMS SEE HPI EXAM: BP 142/100 Pulse 81 Resp 14 Wt 88 kg (194 lb) BMI 30.38 kg/m General Appearance: Well appearing, alert, in no acute distress, well-hydrated, well nourished.. Lungs: Lungs clear to auscultation. No wheezing, rhonchi, rales.. Heart: RRR without murmur, gallop, or rubs. No ectopy. Health Maintenance List Pneumococcal Vaccine(1 of 2 - PCV) Never done BP Controlled (<130/80) Never done Colorectal Cancer Screening Never done Behavioral Health Screening due on 12/01/2024 Shingrix Vaccine(1 of 2) due on 05/20/2025 Influenza Vaccine(1) due on 08/02/2024 Diabetes Screening due on 10/10/2024 Annual PCP Team Chronic Disease Visit due on 05/20/2025 Lipid Screening due on 10/10/2026 DTaP,Tdap,Td Vaccine(3 - Td or Tdap) due on 05/20/2034 Hepatitis C Screening Completed HIV Screening Completed Hepatitis B Vaccine Discontinued Covid-19 Vaccine Discontinued Data reviewed Last 5 Encounter BP Readings: Date: BP: 06/18/2024 142/100 05/20/2024 174/118 03/28/2023 158/100 10/26/2022 134/80 07/28/2022 150/100 ASSESSMENT/PLAN: 1. Essential hypertension - ICD9: 401.9, ICD10: I10 - Uncontrolled - Continue current medications - Recommend home blood pressure monitoring, to bring results to next visit - Encouraged sodium restriction, DASH or Mediterranean diet - Recommend regular aerobic exercise Follow up in 1 week once patient is back on HCTZ as he has been off it for 4 days. Natty Man APRN.CONVEYOR ATTENDANT documented in this encounter [facility] 05-20-2024 Instructions Shaheed Kiran MD - 05/20/2024 3:29 PM EDT If you think you want to get a shingrix vaccine for the prevention of shingles then check with insurance to see if covered and if you can get it at your doctor's office. documented in this encounter [facility] 05-20-2024 History of Present illness Narrative Chief Complaint Patient presents with: Physical HPI Magdy Garcia is a 53 year old male who presents here today for Physical. Patient with Hx of HTN, smoker. Patient c/o of difficulty sleeping. Has issues falling asleep and staying asleep. Has some social stressors. Does drink caffeine throughout the day. Tries to not have any after 6:00 PM. Patient says his does not c/o him snoring or tells him that he stops breathing. Patient continues to smoke at about 4 cigs a day. Past medical history, appointments, medications, allergies reviewed. Previous Medical History PAST MEDICAL HISTORY Diagnosis Date Calculus of kidney staghorn Essential hypertension 08/13/2014 Hydronephrosis 12/20/2009 Left inguinal hernia 01/20/2016 S/p repair 2015 Smoker 01/20/2016 Tobacco use disorder 01/20/2016 Quit 12/2015 Previous Surgical History PAST SURGICAL HISTORY Procedure Laterality Date PAST SURGICAL HISTORY OF 2010 ESWL x3 PAST SURGICAL HISTORY OF 01/2010 percutaneous ultrasonic pyelolithotomy for left staghorn calculi PAST SURGICAL HISTORY OF 01/2010 stent removal under anesthesia REPAIR INGUINAL HERNIA Left 02/28/2016 Open procedure Family History FAMILY HISTORY Problem Relation Age of Onset Hypertension Father Hypertension Paternal Grandfather Patient Allergies ALLERGIES No Known Allergies Current Medications Current Outpatient Medications on File Prior to Visit Medication Sig lisinopril-hydroCHLOROthiazide (ZESTORETIC) 20-12.5 mg per tablet Take 2 tablets by mouth every morning. varenicline (CHANTIX) 1 mg tablet Take 0.5 tablets by mouth once daily for 3 days, THEN 0.5 tablets twice daily for 4 days, THEN 1 tablet twice daily for 23 days. varenicline (CHANTIX) 1 mg tablet Take 1 tablet by mouth twice daily. No current facility-administered medications on file prior to visit. Social History Social History Tobacco Use Smoking status: Former Types: Cigarettes Quit date: 12/27/2015 Years since quittin.4 Smokeless tobacco: Never Tobacco comments: uses electronic cigarette Substance Use Topics Alcohol use: Yes Comment: SOCIALLY-Holidays Drug use: No Review of Symptoms REVIEW OF SYSTEMS GENERAL: No weight loss, malaise or fevers HEENT: Negative for frequent or significant headaches, No changes in hearing or vision, no nose bleeds or other nasal problems NECK: Negative for lumps, goiter, pain and significant neck swelling RESPIRATORY: Negative for cough, hemoptysis, wheezing, COPD, dyspnea or shortness of breath CARDIOVASCULAR: Negative for chest pain, leg swelling, hypertension, CHF or palpitations GI: No nausea, vomiting, or diarrhea, No heartburn or reflux symptoms, and no blood. : No history of dysuria, frequency or blood MUSCULOSKELETAL: Negative for joint pain or swelling, back pain or muscle pain SKIN: Negative for lesions, rash, and itching PSYCH: Negative for sleep disturbance, mood disorder and recent psychosocial stressors HEMATOLOGY/LYMPHOLOGY: Negative for prolonged bleeding, bruising easily or swollen nodes ENDOCRINE: Negative for cold or heat intolerance, polyuria, polydipsia and goiter NEURO: No history of headaches, syncope, paralysis, seizures or tremors EXAM: BP 196/120 (BP Site: Left Arm, BP Position: Sitting, BP Cuff Size: Regular Adult) Pulse 80 Resp 16 Wt 88 kg (194 lb) BMI 30.38 kg/m BP 174/118 Pulse 80 Resp 16 Wt 88 kg (194 lb) BMI 30.38 kg/m Last 5 Encounter Wt Readings: Date: Wt: 05/20/2024 88 kg (194 lb) 03/28/2023 88.9 kg (196 lb) 10/26/2022 88.8 kg (195 lb 12.8 oz) 07/28/2022 90.3 kg (199 lb) 10/12/2021 93.9 kg (207 lb) General Appearance: Well appearing, alert, in no acute distress, well-hydrated, well nourished.. Skin: Skin color, texture, turgor normal, no suspicious rashes or lesions. Head: Normocephalic, no masses, lesions, tenderness or abnormalities. Eyes: Anicteric sclera. Pupils are equally round and reactive to light. Extraocular movements are intact. . Ears: External ears normal, canals clear. Nose/Sinuses: Nares normal, septum midline, mucosa normal, no drainage or sinus tenderness. Oropharynx: Lips, mucosa, and tongue normal, teeth and gums normal, oropharynx normal. Neck: Supple, no adenopathy; thyroid symmetric, normal size, no bruits. Lungs: Lungs clear to auscultation. No wheezing, rhonchi, rales.. Heart: RRR without murmur, gallop, or rubs. No ectopy. Abdomen: Normal abdominal exam, Abdomen soft, non-tender. Bowel sounds normal. No masses, organomegaly. Extremities: No deformities, edema, skin discoloration, . Good capillary refill. . Musculoskeletal: Muscular strength intact, No joint swelling, deformity, or tenderness. Peripheral Pulses: Normal. Neurologic: Gait normal. Reflexes normal and symmetric. Sensation to light touch and crainal nerves 2-12 intact.. Genitalia: declined. Rectal: declined.. Health Maintenance List BP Controlled (<130/80) Never done Hepatitis B Vaccine(1 of 3 - 19+ 3-dose series) Never done Colorectal Cancer Screening Never done Shingrix Vaccine(1 of 2) Never done DTaP,Tdap,Td Vaccine(2 - Td or Tdap) due on 05/04/2023 Covid-19 Vaccine(2022- season) due on 08/02/2023 Behavioral Health Screening Never done Annual PCP Team Chronic Disease Visit due on 03/28/2024 Influenza Vaccine(Season Ended) due on 08/02/2024 Diabetes Screening due on 10/10/2024 Lipid Screening due on 10/10/2026 Hepatitis C Screening Completed HIV Screening Completed Data reviewed A/P ASSESSMENT/PLAN: 1. Well adult exam - ICD9: V70.0, ICD10: Z00.00 (primary diagnosis) - Counseled on healthy diet and regular exercise - Discussed need for and benefit of weight loss. BMI 30.38 kg/(m^2) - Patient was counseled [id number] by myself (the billing provider) for the following immunizations and vaccine components, including side effects: TdaP. Patient consents for immunization and understands risks and benefits. A VIS sheet on each immunization was given to the patient. - Follow up for annual exam in one year Check CMP, Lipid and UA 2. Essential hypertension - ICD9: 401.9, ICD10: I10 - Uncontrolled - Start hydrochlorothiazide 25 mg a day and lisinopril 40 mg twice a day - Recommend home blood pressure monitoring, to bring results to next visit - Encouraged sodium restriction, DASH or Mediterranean diet - Recommend regular aerobic exercise 3. Smoker - ICD9: 305.1, ICD10: F17.200 - Cessation encouraged. - Counseling was given focusing on the harmful effects of this addiction especially given the patient's medical condition(s) which will be worsened because of the chemicals in tobacco. 4. Encounter for immunization - ICD9: V03.89, ICD10: Z23 - TDAP VACCINE, AGE 7+ YR (ADACEL, BOOSTRIX): given 5. Encounter for screening for diabetes mellitus - ICD9: V77.1, ICD10: Z13.1 - check A1c 6. Screening for prostate cancer - ICD9: V76.44, ICD10: Z12.5 Check PSA 7. Screening for colon cancer - ICD9: V76.51, ICD10: Z12.11 - check IFOBT. Requested Prescriptions Signed Prescriptions Disp Refills lisinopril (ZESTRIL) 40 mg tablet 60 tablet 5 Sig: Take 1 tablet by mouth two times a day. hydroCHLOROthiazide 25 mg tablet 30 tablet 5 Sig: Take 1 tablet by mouth once daily. F/u in a month for HTN check F/u in a year for WAE. Shaheed Kiran MD documented in this encounter [facility] 05-20-2024 Note HNO ID: [id number] Author: SHAHEED KIRAN MD Service: ? Author Type: Physician Type: Progress Notes Filed: 05/20/2024 17:10 Note Text: Chief Complaint Patient presents with: Physical HPI Magdy Garcia is a 53 year old male who presents here today for Physical. Patient with Hx of HTN, smoker. Patient c/o of difficulty sleeping. Has issues falling asleep and staying asleep. Has some social stressors. Does drink caffeine throughout the day. Tries to not have any after 6:00 PM. Patient says his does not c/o him snoring or tells him that he stops breathing. Patient continues to smoke at about 4 cigs a day. Past medical history, appointments, medications, allergies reviewed. Previous Medical History PAST MEDICAL HISTORY Diagnosis Date Calculus of kidney staghorn Essential hypertension 08/13/2014 Hydronephrosis 12/20/2009 Left inguinal hernia 01/20/2016 S/p repair 2016 Smoker 01/20/2016 Tobacco use disorder 01/20/2016 Quit 12/2015 Previous Surgical History PAST SURGICAL HISTORY Procedure Laterality Date PAST SURGICAL HISTORY OF 2010 ESWL x3 PAST SURGICAL HISTORY OF 01/2010 percutaneous ultrasonic pyelolithotomy for left staghorn calculi PAST SURGICAL HISTORY OF 01/2010 stent removal under anesthesia REPAIR INGUINAL HERNIA Left 02/28/2016 Open procedure Family History FAMILY HISTORY Problem Relation Age of Onset Hypertension Father Hypertension Paternal Grandfather Patient Allergies ALLERGIES No Known Allergies Current Medications Current Outpatient Medications on File Prior to Visit Medication Sig lisinopril-hydroCHLOROthiazide (ZESTORETIC) 20-12.5 mg per tablet Take 2 tablets by mouth every morning. varenicline (CHANTIX) 1 mg tablet Take 0.5 tablets by mouth once daily for 3 days, THEN 0.5 tablets twice daily for 4 days, THEN 1 tablet twice daily for 23 days. varenicline (CHANTIX) 1 mg tablet Take 1 tablet by mouth twice daily. No current facility-administered medications on file prior to visit. Social History Social History Tobacco Use Smoking status: Former Types: Cigarettes Quit date: 12/27/2015 Years since quittin.4 Smokeless tobacco: Never Tobacco comments: uses electronic cigarette Substance Use Topics Alcohol use: Yes Comment: SOCIALLY-Holidays Drug use: No Review of Symptoms REVIEW OF SYSTEMS GENERAL: No weight loss, malaise or fevers HEENT: Negative for frequent or significant headaches, No changes in hearing or vision, no nose bleeds or other nasal problems NECK: Negative for lumps, goiter, pain and significant neck swelling RESPIRATORY: Negative for cough, hemoptysis, wheezing, COPD, dyspnea or shortness of breath CARDIOVASCULAR: Negative for chest pain, leg swelling, hypertension, CHF or palpitations GI: No nausea, vomiting, or diarrhea, No heartburn or reflux symptoms, and no blood. : No history of dysuria, frequency or blood MUSCULOSKELETAL: Negative for joint pain or swelling, back pain or muscle pain SKIN: Negative for lesions, rash, and itching PSYCH: Negative for sleep disturbance, mood disorder and recent psychosocial stressors HEMATOLOGY/LYMPHOLOGY: Negative for prolonged bleeding, bruising easily or swollen nodes ENDOCRINE: Negative for cold or heat intolerance, polyuria, polydipsia and goiter NEURO: No history of headaches, syncope, paralysis, seizures or tremors EXAM: BP 196/120 (BP Site: Left Arm, BP Position: Sitting, BP Cuff Size: Regular Adult) Pulse 80 Resp 16 Wt 88 kg (194 lb) BMI 30.38 kg/m? BP 174/118 Pulse 80 Resp 16 Wt 88 kg (194 lb) BMI 30.38 kg/m? Last 5 Encounter Wt Readings: Date: Wt: 05/20/2024 88 kg (194 lb) 03/28/2023 88.9 kg (196 lb) 10/26/2022 88.8 kg (195 lb 12.8 oz) 07/28/2022 90.3 kg (199 lb) 10/12/2021 93.9 kg (207 lb) General Appearance: Well appearing, alert, in no acute distress, well-hydrated, well nourished.. Skin: Skin color, texture, turgor normal, no suspicious rashes or lesions. Head: Normocephalic, no masses, lesions, tenderness or abnormalities. Eyes: Anicteric sclera. Pupils are equally round and reactive to light. Extraocular movements are intact. . Ears: External ears normal, canals clear. Nose/Sinuses: Nares normal, septum midline, mucosa normal, no drainage or sinus tenderness. Oropharynx: Lips, mucosa, and tongue normal, teeth and gums normal, oropharynx normal. Neck: Supple, no adenopathy; thyroid symmetric, normal size, no bruits. Lungs: Lungs clear to auscultation. No wheezing, rhonchi, rales.. Heart: RRR without murmur, gallop, or rubs. No ectopy. Abdomen: Normal abdominal exam, Abdomen soft, non-tender. Bowel sounds normal. No masses, organomegaly. Extremities: No deformities, edema, skin discoloration, . Good capillary refill. . Musculoskeletal: Muscular strength intact, No joint swelling, deformity, or tenderness. Peripheral Pulses: Normal. Neurologic: Gait normal. R (more content not included)... [facility] 10-12-2023 Miscellaneous Notes The following approved medication requests have been transmitted electronically. Requested Prescriptions Signed Prescriptions Disp Refills lisinopril-hydroCHLOROthiazide (ZESTORETIC) 20-12.5 mg per tablet 60 tablet 5 Sig: Take 2 tablets by mouth every morning. Authorizing Provider: SHAHEED KIRAN MD [facility] 03/28/23 Scheduled 11/02/23 Pharmacy verified in [facility] Patient has been identified by name and date of : Yes Patient aware RX will be sent to pharmacy. No need to notify patient. Patient phones for refill(s): Requested Prescriptions Pending Prescriptions Disp Refills lisinopril-hydroCHLOROthiazide (ZESTORETIC) 20-12.5 mg per tablet 60 tablet 5 Sig: Take 2 tablets by mouth every morning. Date of last office visit : Visit date not found Date of next office visit : Visit date not found Last 2 Encounter Wt Readings: Date: Wt: 03/28/2023 88.9 kg (196 lb) 10/26/2022 88.8 kg (195 lb 12.8 oz) Not applicable Please advise. Ewa Menchaca Pss documented in this encounter [facility] 03-28-2023 Instructions Natty Man APRN.CNP - 03/28/2023 3:52 PM EDT Complete labwork Restart medication Start Chantix Follow up in 4 weeks for bp check documented in this encounter [facility] 03-28-2023 History of Present illness Narrative Chief Complaint Patient presents with: Physical HPI Magdy Garcia is a 52 year old male who presents here today for Above Complaints.. Patient presents for routine follow up. Patient has a history of hypertension but [place] and has not taken his medications for several months. Past medical history, appointments, medications, allergies reviewed. Previous Medical History PAST MEDICAL HISTORY Diagnosis Date Calculus of kidney staghorn Essential hypertension 08/13/2014 Hydronephrosis 12/20/2009 Left inguinal hernia 01/20/2016 S/p repair 2016 Smoker 01/20/2016 Tobacco use disorder 01/20/2016 Quit 12/2015 Previous Surgical History PAST SURGICAL HISTORY Procedure Laterality Date PAST SURGICAL HISTORY OF 2010 ESWL x3 PAST SURGICAL HISTORY OF 01/2010 percutaneous ultrasonic pyelolithotomy for left staghorn calculi PAST SURGICAL HISTORY OF 01/2010 stent removal under anesthesia REPAIR INGUINAL HERNIA Left 02/28/2016 Open procedure Family History FAMILY HISTORY Problem Relation Age of Onset Hypertension Father Hypertension Paternal Grandfather Patient Allergies ALLERGIES No Known Allergies Current Medications Current Outpatient Medications on File Prior to Visit Medication Sig lisinopril-hydroCHLOROthiazide (PRINZIDE,ZESTORETIC) 20-12.5 mg per tablet Take 2 tablets by mouth every morning. No current facility-administered medications on file prior to visit. Social History Social History Tobacco Use Smoking status: Former Types: Cigarettes Quit date: 12/27/2015 Years since quittin.2 Smokeless tobacco: Never Tobacco comments: uses electronic cigarette Substance Use Topics Alcohol use: Yes Comment: SOCIALLY-Holidays Drug use: No Review of Symptoms REVIEW OF SYSTEMS SEE HPI EXAM: BP 158/100 Pulse 98 Resp 16 Wt 88.9 kg (196 lb) BMI 30.70 kg/m General Appearance: Well appearing, alert, in no acute distress, well-hydrated, well nourished.. Lungs: Lungs clear to auscultation. No wheezing, rhonchi, rales.. Heart: RRR without murmur, gallop, or rubs. No ectopy. Peripheral Pulses: Normal. Health Maintenance List HEPATITIS B(1 of 3 - 3-dose series) Never done BP CONTROLLED (<130/80) Never done COLORECTAL CANCER SCREENING Never done SHINGRIX VACCINE(1 of 2) Never done COVID-19 VACCINE(4 - Booster for Pfizer series) due on 03/04/2022 DEPRESSION ASSESSMENT Never done DTAP,TDAP,TD(2 - Td or Tdap) due on 05/04/2023 ANNUAL PCP TEAM CHRONIC DISEASE VISIT due on 07/28/2023 INFLUENZA(Season Ended) due on 08/02/2023 DIABETES SCREEN due on 10/10/2024 LIPID SCREEN due on 10/10/2026 HEPATITIS C SCREENING Completed HIV SCREENING Completed ASSESSMENT/PLAN: 1. Medication management - ICD9: V58.69, ICD10: Z79.899 (primary diagnosis) - CBC + DIFF - COMP METABOLIC PANEL 2. Encounter for lipid screening for cardiovascular disease - ICD9: V77.91, V81.2, ICD10: Z13.220, Z13.6 - LIPID PANEL, NONFASTING 3. Screening for diabetes mellitus - ICD9: V77.1, ICD10: Z13.1 - HGB A1C 4. Essential hypertension - ICD9: 401.9, ICD10: I10 - poor control - Continue current medication(s) - Encouraged dietary sodium restriction/DASH diet - Recommended regular aerobic exercise. - Recommend home blood pressure monitoring, to bring results in on next visit - Discussed need and benefit for weight loss. - Goal of BP <130/80 - LISINOPRIL 20 MG-HYDROCHLOROTHIAZIDE 12.5 MG TABLET 5. Encounter for smoking cessation counseling - ICD9: V65.42, 305.1, ICD10: Z71.6 - Cessation encouraged. - Physiologic and physical aspects of tobacco addiction as well as strategies for quitting were discussed. - Counseling was given focusing on the harmful effects of this addiction especially given the patient's medical condition(s) which will be worsened because of the chemicals in tobacco. - Counseling was given 3-4 minutes. - Prescription for Chantix given - VARENICLINE 1 MG TABLET - VARENICLINE 1 MG TABLET Natty Man APRN.AVEL documented in this encounter [facility] 03-12-2023 Miscellaneous Notes Pt was notified of message. Pt states he was out of the country [place] 2 months. Explained to pt that he had 3 No shows within the last year. Pt states he has been out of lisinopril/hctz X > 1 month. Appt was scheduled with [facility]onne for 03/28/23. Shu Velasquez LPN Left message for pt to contact office. Cory Clark LPN Let patient know refill request was denied. No Showed to appt in January. Needs seen to get refills. Last refill 07/28/22 Qty: 60 with 5 refills [facility]I 07/28/22 NOV pt no showed appt 02/06/23 No appointment scheduled Cory Clark LPN Patient has been identified by name and date of : Yes Requested Prescriptions Pending Prescriptions Disp Refills lisinopril-hydroCHLOROthiazide (ZESTORETIC) 20-12.5 mg per tablet 60 tablet 5 Sig: Take 2 tablets by mouth every morning. RX INSTRUCTIONS: Patient aware RX will be sent to pharmacy. No need to notify patient. Shaye Gomez Pss documented in this encounter [facility] 10-26-2022 History of Present illness Narrative Patient presents with: Cough: Nasal congestion, pressure reported green nasal discharge, x2 wks. HPI: Feeling sick for 2 weeks. Positive symptoms: Cough, Sinus pressure, Nasal Congestion, Rhinorrhea, Post nasal drainage, sleep disturbance, Sore throat, Negative symptoms: Shortness of breath, Wheezing, Fever, OTC: Robitussin MEDICATIONS: Current Outpatient Medications Medication Sig lisinopril-hydroCHLOROthiazide (PRINZIDE,ZESTORETIC) 20-12.5 mg per tablet Take 2 tablets by mouth every morning. No current facility-administered medications for this visit. ALLERGIES: ALLERGIES No Known Allergies VITALS: BP 134/80 Pulse 116 Temp 36.4 C (97.6 F) Resp 18 Wt 88.8 kg (195 lb 12.8 oz) SpO2 96% BMI 30.67 kg/m PHYSICAL EXAM: GEN: mildly ill appearing HEENT: PERRL, EOMI, conjunctiva lightly injected Ears: canals clear. TMs without erythema, bulge, or effusion Sinuses: non-tender frontal sinus, pressure over maxillary sinuses Throat: moist mucous membranes, mild erythema, no exudate Neck: supple, no thyromegaly, no lymphadenopathy HEART: regular rate and rhythm, no murmurs LUNGS: clear to auscultation, no wheezes or crackles, no increased WOB ASSESSMENT/PLAN: 1. Acute non-recurrent sinusitis, unspecified location - ICD9: 461.9, ICD10: J01.90 Begin - AMOXICILLIN 875 MG-POTASSIUM CLAVULANATE 125 MG TABLET Continue OTC cough suppressant. He got a [place] pot recently and will attempt to you do nasal saline rinse. Tray Trivedi MD documented in this encounter [facility] 07-28-2022 History of Present illness Narrative Chief Complaint Patient presents with: Recheck: medication HPI Magdy Garcia is a 51 year old male who presents here today for Above Complaints. and Chronic Medical Conditions.. Patient with Hx of HTN, smoker. Patient has been having BP's running 140's/90's Past medical history, appointments, medications, allergies reviewed. Previous Medical History PAST MEDICAL HISTORY Diagnosis Date Calculus of kidney staghorn Essential hypertension 08/13/2014 Hydronephrosis 12/20/2009 Left inguinal hernia 01/20/2016 S/p repair 2016 Tobacco use disorder 01/20/2016 Quit 12/2015 Previous Surgical History PAST SURGICAL HISTORY Procedure Laterality Date PAST SURGICAL HISTORY OF 2010 ESWL x3 PAST SURGICAL HISTORY OF 01/2010 percutaneous ultrasonic pyelolithotomy for left staghorn calculi PAST SURGICAL HISTORY OF 01/2010 stent removal under anesthesia REPAIR INGUINAL HERNIA Left 02/28/2016 Open procedure Family History FAMILY HISTORY Problem Relation Age of Onset Hypertension Father Hypertension Paternal Grandfather Patient Allergies ALLERGIES No Known Allergies Current Medications Current Outpatient Medications on File Prior to Visit Medication Sig lisinopril-hydroCHLOROthiazide (PRINZIDE,ZESTORETIC) 20-12.5 mg per tablet Take 1 tablet by mouth every morning. naproxen (NAPROSYN) 500 mg tablet Take 1 tablet by mouth twice daily as needed (pain/inflammation, take with food.). (Patient not taking: Reported on 10/12/2021 ) fluticasone (FLONASE) 50 mcg/actuation nasal spray Use 2 Sprays in each nostril once daily. Rinse mouth after use. (Patient not taking: Reported on 10/12/2021 ) No current facility-administered medications on file prior to visit. Social History Social History Tobacco Use Smoking status: Light Smoker Types: Cigarettes Last attempt to quit: 12/27/2015 Years since quittin.5 Smokeless tobacco: Never Tobacco comments: uses electronic cigarette Substance Use Topics Alcohol use: Yes Comment: SOCIALLY-Holidays Drug use: No Review of Symptoms REVIEW OF SYSTEMS GENERAL: No weight loss, malaise or fevers RESPIRATORY: Negative for cough, hemoptysis, wheezing, COPD, dyspnea or shortness of breath CARDIOVASCULAR: Negative for chest pain, leg swelling, hypertension, CHF or palpitations NEURO: No history of headaches, syncope, paralysis, seizures or tremors EXAM: BP 150/100 (BP Site: Left Arm, BP Position: Sitting, BP Cuff Size: Large Adult) Pulse 72 Temp 36.7 C (98.1 F) Resp 18 Wt 90.3 kg (199 lb) BMI 31.17 kg/m General Appearance: Well appearing, alert, in no acute distress, well-hydrated, well nourished.. Neck: Supple, no adenopathy; thyroid symmetric, normal size, no bruits. Lungs: Lungs clear to auscultation. No wheezing, rhonchi, rales.. Heart: RRR without murmur, gallop, or rubs. No ectopy. Abdomen: Normal abdominal exam, Abdomen soft, non-tender. Bowel sounds normal. No masses, organomegaly. Extremities: No deformities, edema, skin discoloration, Good capillary refill. . Health Maintenance List HEPATITIS B(1 of 3 - 3-dose series) Never done PNEUMOCOCCAL(1 - PCV) Never done COLORECTAL CANCER SCREENING Never done SHINGRIX VACCINE(1 of 2) Never done DEPRESSION SCREENING due on 03/08/2022 COVID-19 VACCINE(4 - Booster for Pfizer series) due on 05/07/2022 INFLUENZA(1) due on 08/02/2022 ANNUAL PCP TEAM CHRONIC DISEASE VISIT due on 10/12/2022 BP CONTROLLED (<130/80) due on 11/20/2022 DTAP,TDAP,TD(2 - Td or Tdap) due on 05/04/2023 DIABETES SCREEN due on 10/10/2024 LIPID SCREEN due on 10/10/2026 HEPATITIS C SCREENING Completed HIV SCREENING Completed Data reviewed A/P ASSESSMENT/PLAN: 1. Essential hypertension - ICD9: 401.9, ICD10: I10 (primary diagnosis) - suboptimal control - Continue current medication(s) - Increase Zestoretic 20/12.5 to two pills a day. - Recommended regular aerobic exercise. - Recommend home blood pressure monitoring, to bring results in on next visit - Recheck in 4 weeks, sooner should new symptoms or problems arise. - Goal of BP <130/80 Check - COMP METABOLIC PANEL - URINALYSIS, WITH MICROSCOPIC - LIPID PANEL, NONFASTING - LISINOPRIL 20 MG-HYDROCHLOROTHIAZIDE 12.5 MG TABLET 2. Smoker - ICD9: 305.1, ICD10: F17.200 - Cessation encouraged. - Counseling was given focusing on the harmful effects of this addiction especially given the patient's medical condition(s) which will be worsened because of the chemicals in tobacco. 3. Encounter for screening for diabetes mellitus - ICD9: V77.1, ICD10: Z13.1 Check - HGB A1C 4. Screening for prostate cancer - ICD9: V76.44, ICD10: Z12.5 Check - PSA/PROSTSPECAG DIAG Requested Prescriptions Signed Prescriptions Disp Refills lisinopril-hydroCHLOROthiazide (PRINZIDE,ZESTORETIC) 20-12.5 mg per tablet 60 tablet 5 Sig: Take 2 tablets by mouth every morning. F/u 6 months WAE. F/u 4 weeks NV BP check Shaheed Kiran MD documented in this encounter [facility] 07-25-2021 History of Present illness Narrative Radiology Service Progress Note PATIENT NAME: Magdy Garcia DATE OF SERVICE: July 25, 2021 TIME: 10:13 AM PATIENT IDENTITY VERIFICATION COMPLETED USING TWO (2) IDENTIFIERS: Name and Date of confirmed by patient verbally. FALL SCREENING: Has the patient had 2 falls in the last year or 1 fall with injury or currently using an Ambulatory Assistive Device (Walker, Cane, Wheelchair, Crutches, etc.)? No PATIENT GENDER DATA: Male PATIENT RELEVANT IMPLANT DATA REVIEWED: Not Applicable RADIOLOGY DEPARTMENT: General X-ray: Exam(s) Completed: Chest X-Ray PERIPHERAL IV DATA: Not applicable SIGNED BY: Winston Dhaliwal RT(R) July 25, 2021 10:13 AM documented in this encounter [facility] 05-31-2021 History of Present illness Narrative Radiology Service Progress Note PATIENT NAME: Magdy Garcia DATE OF SERVICE: May 31, 2021 TIME: 12:46 PM PATIENT IDENTITY VERIFICATION COMPLETED USING TWO (2) IDENTIFIERS: Name and Date of confirmed by patient verbally. FALL SCREENING: Has the patient had 2 falls in the last year or 1 fall with injury or currently using an Ambulatory Assistive Device (Walker, Cane, Wheelchair, Crutches, etc.)? No PATIENT GENDER DATA: Male PATIENT RELEVANT IMPLANT DATA REVIEWED: Not Applicable RADIOLOGY DEPARTMENT: General X-ray: Exam(s) Completed: Lower Extremity X-Ray(s): Knee, AP / Lat / Tunne / Merchant Left and Wt. Bearing PERIPHERAL IV DATA: Not applicable SIGNED BY: RT Leroy(R) May 31, 2021 12:46 PM documented in this encounter [facility] Discharge summary Note Date/Time January 02, 2023 2:33am [facility] Medical Records Department [address] [place] [address] Emergency Department Summary 01/02/23 MR#: [id number] Acct: [id number] Name: MAGDY GARCIA Rep #:[id number] : 1970 52 From: Aroldo Wellington MD PCP: Dr. Shaheed Kiran MD Status:REG ER Location: ED HPI History of Present Illness Chief Complaint: Edema Detail of Chief Complaint: Left nasal pain after being scratched inside his nose. Informant: patient Onset/Context/Timing Onset: Days Context: Gradual Onset Timing: Continuous Current Severity: Mild Maximum Severity: Mild Narrative Narrative: 52-year-old male treated for hypertension on lisinopril. He is a small child hewas holding scratch inside his left naris. That was several days to a week ago. He had discomfort and mild swelling. He said initially it bled. Said there isminimal swelling on the outside of his nose is tender. He is also had some veryminimal swelling to his left upper lip. No trouble swallowing. No swelling of his tongue. No trouble breathing. Prior similar symptoms: No Recent Illness/Hospitalization: No PFSH PFSH Medical History Hypertension Home Medications lisinopril 20 mg-hydrochlorothiazide 12.5 mg tablet 1 tab PO DAILY 01/14/20 [History Last Taken Unknown] Allergy/AdvReac Type Severity Reaction Status Date / Time No Known Allergies Allergy Verified 01/02/23 02:08 Surgical History no surgical history Social History Smoking Status: Current every day smoker tobacco type: cigarettes ROS ROS ED ROS Narrative No recent illness. Review of Systems ROS Unobtainable: Denies due to encephalopathy Constitutional Constitutional ED: Denies chills or fever(s) Eyes Eyes: Denies blurry vision ENT ENT ED: Reports rhinorrhea; Denies ear pain or sore throat Cardiovascular Cardiovascular: Denies chest pain or palpitations Respiratory/Chest Respiratory/Chest: Denies cough or dyspnea Gastrointestinal Gastrointestinal: Denies abdominal pain Genitourinary Genitourinary ED: Denies dysuria or hematuria Musculoskeletal Musculoskeletal: Denies arthralgias Integumentary Denies abscess Neurologic Neurologic: Denies headache(s) Psychiatric Psychiatric: Denies anxiety Endocrine Endocrinology: Denies cold intolerance Hematologic/Lymphatic Hematologic/Lymphatic: Reports none Allergic/Immunologic Allergic/Immunologic ED: Denies mouth swelling, tongue swelling or urticaria EXAM Physical Exam Narrative Exam Narrative: Well-appearing 52-year-old male. Vital signs stable afebrile. Initial blood pressure 176/111. H EENT exam he has a nasal drainage of both sides of his nose. The left lateral side of his nose is tender to palpation. There is no significant swelling. No bleeding. I do not see any signs of a nasal abscess. Pupils are reactive light his motions are intact. His left upper lip is just minimally swollen. It is asymmetrical to the right. No trouble swallowing and no tongue swelling. No drooling. Neck nontender no lymphadenopathy. Lungs clear to auscultation bilaterally. Heart regular rhythm no murmur. Abdomen soft nontender. Moving all 4 extremities. Const Vital Signs: 01/02/23 02:09 01/02/23 02:11 Temperature 97.9 F Temperature Source Oral Pulse Rate 86 Respiratory Rate 16 Respiratory Effort Normal Respiratory Pattern Normal Blood Pressure 176/111 H Blood Pressure Mean 132 Pulse Ox 98 Oxygen Delivery Method Room Air Positive well developed; Negative for obese, cachectic, contractures or unkempt General Appearance ED: well developed and NAD; Negative for unkempt, cachectic, contractures, cyanotic, diaphoretic or pallor Nutritional Appearance: Negative for cachectic or obese HEENT Reports moist mucous membranes; Denies dry mucous membranes Negative for trauma or tenderness Mouth ED: No dry mucous membranes Mouth: No dry mucous membranes Eyes PERRL and EOMs intact bilaterally General Eye ED: Negative for pale conjunctiva or scleral icterus Neck no lymphadenopathy, supple and no JVD General: Negative for tenderness Chest Wall inspection of chest normal and palpation of chest normal Resp normal respiratory effort and clear to auscultation bilaterally Effort and Inspection: Negative for retractions Auscultation: Negative for rales, rhonchi or wheezes Cardio regular rate, regular rhythm, S1 normal heart sound, S2 normal heart sound and no murmurs GI normal to inspection, nondistended, normoactive bowel sounds, non-tender, non-distended and no masses Inspection: Negative for abdominal distention Auscultation: normoactive bowel sounds Palpation: soft; Negative for tender or guarding Back/Spine Negative for no CVA tenderness Extremity normal to inspection General Extremety ED: Negative for edema or tenderness General Extremity: Negative for edema Neuro oriented x3 Sensorium / Orientation: alert; Negative for orientation impaired, lethargic or stuporous Motor Exam: strength 5/5 throughout Psych mental status grossly normal Appearance: Negative for unkempt Attitude: No agitated Mood & Affect: Negative for depressed, anxious or tearful Skin no rashes or lesions noted and no wounds General Skin Exam: elasticity normal; Negative for jaundice or pallor Lesions: No lesion noted Rashes: No rashes noted Trauma: Negative for abrasion Wounds: Negative for wounds noted MDM MDM MDM Narrative Medical decision making narrative: 50-year-old male that was poked in the nose by a little child and cut the insideof his nose with bleeding. This occurred 5 to 7 days ago. Now he has left nasal pain and some swelling. He is concerned he may be infected. He also is on an VALENTINA inhibitor and has minimal swelling of his left upper lip. He has had tongue swelling in the past that resolved but he never told his physician about. 1 admitted treating for a possible nasal mucosal infection from a internal laceration. He will be started on Keflex 500 3 times daily for 10 days. I explained to him there is some color angioneurotic edema from VALENTINA inhibitor's. He may have that. With the lower lip swelling. It is not large at all at this time. He said no trouble swallowing or breathing. He should hold his VALENTINA inhibitor. Follow-up with his primary care physician to be changed to a different blood pressure medication. Return if worse. He knows return if the lip gets more swollen or his tongue started to swell. Is any trouble breathing or swallowing. Discharge Plan Triage Chief Complaint: Edema ED Provider: Aroldo Wellington Dx/Rx/DC Orders Clinical Impression: Abrasion of nose with infection, Angioneurotic edema, History of hypertension Instructions: ED Angioedema Prescriptions: No Action lisinopril-hydrochlorothiazide 20-12.5 mg tablet 1 tab PO DAILY Label Comments: take 1 tablet by mouth every morning Primary Care Provider: Shaheed Kiran Referrals: Shaheed Kiran MD [Primary Care Provider] - As soon as possible Activity Restrictions/Additional Instructions: Keflex 1 pill 3 times a day for 10 days to improve the infection on your nose. You have mild swelling on your left upper lip. This may be a reaction to your blood pressure medication the lisinopril. Hold medication. Follow-up with Dr. Kiran to discuss with him about having your blood pressure medication changed. If you start having more swelling of your lip or tongue you need to return. Iceto your lip. Disposition Disposition: Home, Self Care What to do if you have Problems For any increased pain, shortness of breath, bleeding, nausea or vomiting, chestpain, or any unexpected problems, contact your Primary Care Provider. Call [facility] ([phone]) or report to the closest Emergency Room. Call 911 if necessary. 01/02/233 <Electronically signed by Aroldo Wellington MD> Cosigner Signature (if applicable): CC: Dr. Shaheed Kiran MD ~ Signed [facility] Work Phone: [facility] note* Diagnosis Essential hypertension- Primary Unspecified essential hypertension Smoker Tobacco use disorder Encounter for screening for diabetes mellitus Screening for diabetes mellitus Screening for prostate cancer Special screening for malignant neoplasm of prostate documented in this encounter [facility] note* Diagnosis Acute non-recurrent sinusitis, unspecified location- Primary documented in this encounter [facility] noteNo assessment information [facility] Work Phone: Evaluation note* Diagnosis Essential hypertension Unspecified essential hypertension documented in this encounter [facility] note* Diagnosis Medication management- Primary Encounter for long-term (current) use of other medications Encounter for lipid screening for cardiovascular disease Screening for lipoid disorders Screening for diabetes mellitus Essential hypertension Unspecified essential hypertension Encounter for smoking cessation counseling Counseling on substance use and abuse documented in this encounter [facility] note* Diagnosis Essential hypertension Unspecified essential hypertension documented in this encounter [facility] note* Diagnosis Well adult exam- Primary Routine general medical examination at a health care facility Essential hypertension Unspecified essential hypertension Smoker Tobacco use disorder Encounter for immunization Need for other specified prophylactic vaccination against single bacterial disease Encounter for screening for diabetes mellitus Screening for diabetes mellitus Screening for prostate cancer Special screening for malignant neoplasm of prostate Screening for colon cancer Special screening for malignant neoplasms, colon [facility] [place] [facility] Diagnosis Essential hypertension- Primary Unspecified essential hypertension documented in this encounter [facility] note* Diagnosis Acute pain of left knee documented in this encounter [facility] note* Diagnosis Medication management- Primary Encounter for long-term (current) use of other medications Essential hypertension Unspecified essential hypertension [facility] Additional Instructions Keflex 1 pill 3 times a day for 10 days to improve the infection on your nose. You have mild swelling on your left upper lip. This may be a reaction to your blood pressure medication the lisinopril. Hold medication. Follow-up with Dr. Kiran to discuss with him about having your blood pressure medication changed. If you start having more swelling of your lip or tongue you need to return. Ice to your lip.[facility] Work Phone: Summary Purpose Family History No Family History Records FoundNo Family History Records FoundNo Family History Records Found Advance Directives No Advanced Directives Records Found Advance Directive Response Recorded Date/ Time Living Will No January 02 2:11am Power of Regional Environmental Manager No January 02, 2023 2:11am Chief Complaint and Reason for Visit Chief Complaint facial swelling Additional Source Comments (unrecognized sect ion and content) No Status Records FoundNo Status Records FoundNo Status Records Found INFORMATION SOURCE (unrecogn ized section and content) DATE CREATED AUTHOR 01/20/2019 [facility] ([place]) DATE CREATED AUTHOR AUTHOR'S ORGANIZ ATION 12/15/2024 [facility] DATE CREATED AUTHOR AUTHOR'S ORGANIZ ATION 01/01/2025 [facility] Source Comments (unrecognize d section and content) In the event this informatio n is protected by the Federal Confidentiality of Alcohol and Drug Abuse Patient Records regulations: The Federal rules restrict any use of the information to criminally investigate or prosecute any alcohol or drug abuse patient.[facility] event this information is protected by the Federal Confidentiality of Alcohol and Drug Abuse Patient Records regulations: The Federal rules restrict any use of the information to criminally investigate or prosecute any alcohol or drug abuse patient.[facility] the event this information is protected by the Federal Confidentiality of Alcohol and Drug Abuse Patient Records regulations: The Federal rules restrict any use of the information to criminally investigate or prosecute any alcohol or drug abuse patient.[facility] the event this information is protected by the Federal Confidentiality of Alcohol and Drug Abuse Patient Records regulations: The Federal rules restrict any use of the information to criminally investigate or prosecute any alcohol or drug abuse patient.[facility] the event this information is protected by the Federal Confidentiality of Alcohol and Drug Abuse Patient Records regulations: The Federal rules restrict any use of the information to criminally investigate or prosecute any alcohol or drug abuse patient.[facility] the event this information is protected by the Federal Confidentiality of Alcohol and Drug Abuse Patient Records regulations: The Federal rules restrict any use of the information to criminally investigate or prosecute any alcohol or drug abuse patient.[facility] the event this information is protected by the Federal Confidentiality of Alcohol and Drug Abuse Patient Records regulations: The Federal rules restrict any use of the information to criminally investigate or prosecute any alcohol or drug abuse patient.[facility] the event this information is protected by the Federal Confidentiality of Alcohol and Drug Abuse Patient Records regulations: The Federal rules restrict any use of the information to criminally investigate or prosecute any alcohol or drug abuse patient.[facility] the event this information is protected by the Federal Confidentiality of Alcohol and Drug Abuse Patient Records regulations: The Federal rules restrict any use of the information to criminally investigate or prosecute any alcohol or drug abuse patient.[facility] the event this information is protected by the Federal Confidentiality of Alcohol and Drug Abuse Patient Records regulations: The Federal rules restrict any use of the information to criminally investigate or prosecute any alcohol or drug abuse patient.[facility] the event this information is protected by the Federal Confidentiality of Alcohol and Drug Abuse Patient Records regulations: The Federal rules restrict any use of the information to criminally investigate or prosecute any alcohol or drug abuse patient.[facility] the event this information is protected by the Federal Confidentiality of Alcohol and Drug Abuse Patient Records regulations: The Federal rules restrict any use of the information to criminally investigate or prosecute any alcohol or drug abuse patient.[facility] the event this information is protected by the Federal Confidentiality of Alcohol and Drug Abuse Patient Records regulations: The Federal rules restrict any use of the information to criminally investigate or prosecute any alcohol or drug abuse patient.[facility] Reason for Visit (unrecogniz ed section and content) Reason Comments Recheck medication Reason Comments Cough Nasal congestion, pr essure reported green nasal discharge, x2 wks. Reason Comments Refill Request Reason Comments Physical Reason Comments Medication Problem Reason Comments Follow Up Reason Comments Follow Up BP Reason Onset Date Comments Refill Request 11/26/2024 Reason Comments ER Discharge Summary Care Teams (unrecognized sec tion and content) Business Account Leader Relationship Specialty Start Date End Date Shaheed Kiran MD [address] [place] [address] PCP - General Family Practice 03/24/14 Business Account Leader Relationship Specialty Start Date End Date Shaheed Kiran MD [address] [place], [place] [id number] PCP - General Family Medicine 03/24/14 Team Status: Active Member Role Status Dates No Primary Care Physician Family Provider Active Dr. Shaheed Kiran MD Primary Care Provider Active Team Status: Inactive Member Role Status Dates Dr. Shaheed Kiran MD Primary Care Provider Active Dr. Aroldo Wellington MD Emergency Provider Active Business Account Leader Relationship Specialty Start Date End Date Shaheed Kiran MD [address] [place], [place] [id number] PCP - General Family Medicine 03/24/14 Business Account Leader Relationship Specialty Start Date End Date Shaheed Kiran MD [address] [place], [place] [id number] PCP - General Family Medicine 03/24/14 Business Account Leader Relationship Specialty Start Date End Date Shaheed Kiran MD [address] [place] [address] PCP - General Family Medicine 03/24/14 Business Account Leader Relationship Specialty Start Date End Date Shaheed Kiran MD [address] [place] [address] PCP - General Family Medicine 03/24/14 Business Account Leader Relationship Specialty Start Date End Date Shaheed Kiran MD [address] [place] [address] PCP - General Family Medicine 03/24/14 Business Account Leader Relationship Specialty Start Date End Date Shaheed Kiran MD [address] [place] [address] PCP - General Family Medicine 03/24/14 Business Account Leader Relationship Specialty Start Date End Date Shaheed Kiran MD [address] [place] [address] PCP - General Family Medicine 03/24/14 Natty Man APRN.CONVEYOR ATTENDANT [address] [place] [address] Fulfillment Coordinator Family Medicine 11/07/24 Heike De León PA-C [address] [place] [address] Fulfillment Coordinator Family Medicine 11/07/24 Business Account Leader Relationship Specialty Start Date End Date Shaheed Kiran MD [address] [place] [address] PCP - General Family Medicine 03/24/14 Natty Man APRN.AVEL [address] [place] [address] [facility] 11/07/24 Heike De León PA-C [address] [place] [address] [facility] 11/07/24 Goals (unrecognized section and content) Goals may be documented in a n alternate section FOR RECORDS PERTAINING TO PATIENTS WHO ARE OR HAVE BEEN ENROLLED IN A CHEMICAL DEPENDENCY/SUBSTANCEABUSE PROGRAM, SOME INFORMATION MAY BE OMITTED. This clinical summary was aggregated from multiple sources. Caution should be exercised in using it in the provision of clinical care. This summary normalizes information from multiple sources, and as a consequence, information in this document may materially change the coding, format and clinical context of patient data. In addition, data may be omitted in some cases. CLINICAL DECISIONS SHOULD BE BASED ON THE PRIMARY CLINICAL RECORDS. [facility]. provides no warranty or guarantee of the accuracy or completeness of information in this document.
== END 2025-05-18 07:10 | disposition home or self-care (01) ==
LOC: ED 07:08
PROVIDERS: Emergency Provider Emergency Medicine; PCP Family Medicine; Visit Provider Emergency Medicine
DX: F43.20 Adjustment disorder, unspecified (principal); I10 Essential (primary) hypertension; Z63.4 Disappearance and death of family member; Z79.899 Other long term (current) drug therapy; F17.210 Nicotine dependence, cigarettes, uncomplicated; F41.9 Anxiety disorder, unspecified; F32.A Depression, unspecified
CPT/HCPCS: 99282